=== PATIENT | female | born 1975 | race Caucasian/White ===

== ENCOUNTER 2019-04-03 08:47 | Day surgery (SDC) | payer OTHER ==
[2019-04-03] MEDS ORDERED: Ringers Lactate 1,000 ML IV ONE (09:00)
[2019-04-03] MEDS ORDERED: CEFAZOLIN/SWI 2gm 2 GM/20 ML SYR ONE (09:00)
[2019-04-03] MEDS ORDERED: LIDOCAINE 1% W/EPI 1:100,000 MDV 20 ML VIAL ONE (09:28)
[2019-04-03] MEDS ORDERED: NA CHLORIDE 0.9% 1,000 ML ONE (09:28)
[2019-04-03 09:29] LABS: Specific Gravity 1.025 (1.005-1.030)
[2019-04-03] MEDS ORDERED: MIDAZOLAM HCL 2 MG/2 ML INJ ONE (09:49)
[2019-04-03] MEDS ORDERED: FENTANYL CITR 100 MCG/2 ML ONE (09:49)
[2019-04-03] MEDS ORDERED: dexAMETHasone 10 MG/ML VIAL ONE (09:49)
[2019-04-03] MEDS ORDERED: PROPOFOL 200 MG/20 ML VIAL IV ONE (09:49)
[2019-04-03] MEDS ORDERED: LIDOCAINE 2% MPF 5 ML VIAL ONE (09:50)
[2019-04-03] MEDS: MORPHINE 4 MG/ML SYR ONE ×2 (12:57→13:02)
[2019-04-03] MEDS: MEPERIDINE HCL 25 MG/0.5 ML ONE ×2 (13:05→13:10)
[2019-04-03] MEDS ORDERED: TRAMADOL HCL 50 MG TAB ONE (13:39)
[2019-04-03] MEDS ORDERED: ONDANSETRON 4 MG/2 ML VIAL ONE (13:39)
[2019-04-03 13:58] VITALS: TEMP 97.3
[2019-04-03 14:38] VITALS: BP 136/67; O2SAT 97
--- NOTE | 2019-04-03 22:53 | OP ---
Date of Procedure: 04/03/2019 Surgeon: Hoa Acosta MD Preoperative Diagnoses: Menorrhagia, patient on anticoagulant for atrial fibrillation and dysmenorrh ea. Patient is status post LEEP and a tubal ligation. Cervical stenosis and section. Postoperative Diagnoses: Menorrhagia, patient on anticoagulant for atrial fibrillation and dysmenorr hea. Patient is status post LEEP and a tubal ligation. Cervical stenosis and section. Procedures Performed: Cervical dilatation, hysteroscopy, endometrial ablation with NovaSure. Anesthesia: General with LMA. Specimens: None. Complications: None. Drains: No drains. Condition: Stable. Findings: Uterine cavity anteflexed sounding length 11 cm under direct hysteroscopy with the camera and cervical length 5 cm, also done directly. Calculated cavity length was 6, measured width was 4.2 . Power setting was at 139 manzo and time of ablation 55 seconds. There was an excellent ablation effect. After the ablation was done cavity was visualized with the s cope and cavity irrigated out. Indications For Procedure: Patient is a 43-year-old who presented for all this. Transvaginal ultras ound was performed. Her endometrium was thickened and it was sampled with hysteroscopic guidance in the office and there was no atypia or malignancy. So discussed all the options. She had a Mirena at tempted by a prior provider who could not pass through her cervix. She has history of the LEEP and t he cervix was very high and uterus severely anteflexed. During hysteroscopy all these findings were confirmed and the left half of the cervix was barely present on the ectocervical part, so discussed a bout the options of depot medroxyprogesterone or endometrial ablation and she consented for endometri al ablation. Description Of Procedure: Patient was brought into the OR, 2 g of Ancef given and patient was taken back to OR, placed in a supine fashion on the operating table. General anesthesia given and placed i n a dorsal lithotomy position. Pelvic exam performed, uterus anteflexed, cervix very high, most like ly from her scar. Smithmill speculum was placed to expose the cervix, prep x3 with Betadine w as done. A tenaculum was used to hold the right half of the ectocervix that was more obvious, allison hanna, this did not work. Allis clamps had to be used and then once the cervix was held, the hysteroscop e was passed through the cervical canal into the uterine cavity under direct vision. The cavity was visualized and measured as dictated above. After the scope was removed and the measured lines were f ound, then the NovaSure device was taken, cervix had to be dilated to 16-Venezuelan, then an attempt with the NovaSure was done to insert it, but this was very difficult as this was a straight device for cu rved cervix which was leading into an anteflexed uterine cavity, so plan was to remove the speculum, change the tenaculum to Allis clamps only dilated to 18-Venezuelan, then the ablation device was inserted . Once the device was inserted and opened up, we opened up to 4.2 cm width, then the ablation cycle was done in the usual fashion with checking cavity integrity occluding the external os. Then once th is passed the ablation cycle was started and completed in 55 seconds. No interruption, did well, the device was undeployed and handed out. Diagnostic hysteroscope was taken again and hysteroscopy was performed rinsing out the cavity. There was an excellent endometrial ablation effect in the entire u terine cavity from both 1 corner to the other and both anterior posterior garzon all the way to the le dhruv of the internal os. So, all the instruments were removed. Instrument, needle, and sponge counts were done and were correct at the end of the case. Patient tolerated the procedure well. She will follow up with me in 4 weeks. Restarting her Xarelto tomorrow night. RYANN/RADU Voice ID: [id number] Report ID: [id number]
== END 2019-04-03 14:42 | disposition home or self-care (01) ==
LOC: OR 08:47
PROVIDERS: ATTEND Obstetrics & Gynecology
PROC: 0U5B8ZZ Destruction of Endometrium, Via Natural or Artificial Opening Endoscopic (ICD-10-PCS; principal; 2019-04-03 10:30)
DX: N92.1 Excessive and frequent menstruation with irregular cycle (principal); N94.6 Dysmenorrhea, unspecified; N88.2 Stricture and stenosis of cervix uteri; I48.91 Unspecified atrial fibrillation; F41.9 Anxiety disorder, unspecified; Z79.01 Long term (current) use of anticoagulants; Z98.51 Tubal ligation status; Z82.49 Family history of ischemic heart disease and other diseases of the circulatory system
CPT/HCPCS: 81025; 58563; J2704; J2250; J3010; J1100; J2175; J0690; J7120; J7030; J2405

== ENCOUNTER 2019-04-30 06:56 | Day surgery (SDC) | payer OTHER ==
--- NOTE | 2019-04-29 13:08 | RAD REPORT ---
EXAM DESCRIPTION: Angelica Jarvis (2 Views)04/29/2019 1:02 pm CLINICAL HISTORY: Preop for cardioversion COMPARISON: 2014 FINDINGS: The lungs appear clear of acute infiltrate. The heart is moderately enlarged IMPRESSION: No acute abnormalities displayed
[2019-04-29 14:24] LABS: Protime INR 1.76
[2019-04-29 14:34] LABS: Absolute Lymphocytes (CBC) 1.4 K/uL (0.7-4.9); Basophils % 0.4 % (0-1.3); Hematocrit 39.3 % (36.0-45.0); Lymphocytes % 13.8 % (15.3-44.8); MPV 12.1 fL (7.6-11.3); Potassium 3.9 mmol/L (3.5-5.1); RBC Red Blood Cell Count 4.28 M/uL (3.86-4.86)
[2019-04-30] MEDS ORDERED: ATROPINE SULF 1 MG/10 ML SYR IV ONE (07:31)
[2019-04-30] MEDS ORDERED: MIDAZOLAM HCL 5 MG/5 ML INJ ONE (07:31)
[2019-04-30] MEDS ORDERED: NA CHLORIDE 0.9% 500 ML ONE (07:31)
[2019-04-30] MEDS ORDERED: FLUMAZENIL 0.1 MG/ML (5 mL VIAL) IV ONE (07:31)
[2019-04-30 09:10] VITALS: TEMP 98.3
[2019-04-30 10:05] VITALS: O2SAT 97
[2019-04-30 10:16] VITALS: BP 127/80
--- NOTE | 2019-04-30 12:48 | EKG ---
Test Date: 2019-04-30 Test Time: 09:00:49 Receiving Dock Checker: NICOLAS MEASUREMENT RESULTS: Intervals: Rate: 81 ID: [id number] QRSD: 122 QT: 414 QTc: 480 [place]: P: ID: [id number] QRS: 242 T: -30 INTERPRETIVE STATEMENTS: Sinus rhythm with 1st degree AV block Right bundle branch block non specific T abnormality Abnormal ECG Compared to ECG 12/22/2014 07:27:33 Sinus arrhythmia no longer present Left anterior fascicular block no longer present Bifascicular block no longer present Electronically Signed On 04-30-19 12:47:43 SECURITY ASSOCIATE by Eloy Torres
--- NOTE | 2019-04-30 19:07 | OP ---
Surgeon: Eloy Torres MD Procedure: Direct current cardioversion. Indication: Atrial flutter. Procedure In Detail: The patient was brought to the cardiac laborer yard in a fasting state. She receiv ed Xarelto last night on schedule. She has been on Xarelto for years. She also took her usual dose of propafenone 300 mg 3 times a day earlier this morning. Otherwise, she was n.p.o. She was sedated with 10 mg of Versed. Anterior and posterior paddles were applied to her chest. A single shock of 50 joules was delivered through the anterior and posterior paddles, synchronized to the QRS complex. This resulted in normal sinus rhythm. Complications: From the procedure none. KRISH/RADU Voice ID: [id number] Report ID: [id number]
== END 2019-04-30 09:46 | disposition home health service (06) ==
LOC: CCL 06:56
PROVIDERS: ATTEND Internal Medicine
DX: I48.92 Unspecified atrial flutter (principal); Z79.01 Long term (current) use of anticoagulants
CPT/HCPCS: 93005; 85025; 80048; 36415; 85610; 82947; 85730; 71046; 92960; J2250; J7040

== ENCOUNTER 2020-12-07 06:09 | Day surgery (SDC) | payer SELFPAY ==
[2020-12-07 06:58] LABS: Absolute Lymphocytes (CBC) 2.3 K/uL (0.7-4.9); Basophils % 0.7 % (0-1.3); Hematocrit 41.6 % (36.0-45.0); Lymphocytes % 28.3 % (15.3-44.8); MPV 11.3 fL (7.6-11.3)
[2020-12-07 07:13] VITALS: TEMP 96.9
[2020-12-07 07:31] LABS: Protime INR 2.65
[2020-12-07 07:35] LABS: Potassium 4.1 mmol/L (3.5-5.1)
[2020-12-07] MEDS ORDERED: MIDAZOLAM HCL 2 MG/2 ML INJ ONE (07:49)
[2020-12-07] MEDS ORDERED: FLUMAZENIL 0.1 MG/ML (5 mL VIAL) IV ONE (07:50)
[2020-12-07] MEDS ORDERED: ATROPINE SULF 1 MG/10 ML SYR IV ONE (07:51)
[2020-12-07] MEDS ORDERED: MIDAZOLAM HCL 5 ML ONE (07:51)
[2020-12-07 09:09] VITALS: O2SAT 100
[2020-12-07 09:13] VITALS: BP 104/65
--- NOTE | 2020-12-07 10:21 | OP ---
Surgeon: Dimas Hatch MD Inspector [employer]: Lupe Funez. Indication: Recurrent atrial fibrillation, on flecainide. The plan was for direct current cardiover kamala. Procedure In Detail: The patient was given 10 mg of Versed IV push for total sedation. Two hundred joules, one shock was given to convert to sinus rhythm. The patient tolerated the procedure well. T here were no complications. No blood loss. Postoperative Diagnoses: Atrial fibrillation, status post successful cardioversion to sinus rhythm. We will continue her home medications including flecainide and Xarelto. She will go home when she wa kes up. She will see us in the office in the next week or 2. MIRIAN/RADU Voice ID: [id number] Report ID: [id number]
--- NOTE | 2020-12-07 10:26 | EKG ---
Test Date: 2020-12-07 Test Time: 07:08:33 Applied Psychology Professor: PORSCHE MEASUREMENT RESULTS: Intervals: Rate: 64 IA: 276 QRSD: 132 QT: 486 QTc: 501 [place]: P: -54 IA: 276 QRS: -83 T: -28 INTERPRETIVE STATEMENTS: Unusual P axis, possible ectopic atrial rhythm Right bundle branch block Left anterior fascicular block Bifascicular block Possible Lateral infarct, age undetermined Abnormal ECG Compared to ECG 04/30/2019 09:00:49 Left anterior fascicular block now present Bifascicular block now present Myocardial infarct finding now present Sinus rhythm no longer present First degree AV block no longer present T-wave abnormality no longer present Electronically Signed On 12-08-20 07:36:09 CDT by Dimas Hatch
== END 2020-12-07 09:30 | disposition home or self-care (01) ==
LOC: CCL 06:09
PROC: 5A2204Z Restoration of Cardiac Rhythm, Single (ICD-10-PCS; principal; 2020-12-07)
DX: I48.91 Unspecified atrial fibrillation (principal); Q21.1 Atrial septal defect; Q21.0 Ventricular septal defect; Z79.01 Long term (current) use of anticoagulants; F17.210 Nicotine dependence, cigarettes, uncomplicated; Z20.822 Contact with and (suspected) exposure to COVID-19
CPT/HCPCS: 36415; 80048; 85025; 85610; 85730; 92960; 93005; J2250; U0003

== ENCOUNTER 2022-04-15 08:22 | Emergency (ER) | payer BC, SELFPAY ==
--- OUTSIDE RECORDS SUMMARY | 2022-04-15 08:24 | XMS REPORT | Continuity of Care Document ---
:1975 Author Organization [facility] t Address [address] [place] [address] Care Team Providers Name Role Phone Zach Wilson Attending Clinician Unavailable Zach Wilson Admitting Clinician Unavailable Payers Payer Name Policy Type Policy Number Effective Date Expiration Date S ource Problems Condition Condition Condition Status Onset Resolution Last Treating Co mments Source Name Details Category Date Date Treatment Clinician Date Mild Mild Diagnosis Active Common reactive reactive [facility] airways airways - [facility] disease, disease, St unspecifie unspecifie Elizabeth kes d whether d whether Medi mayra persistent persistent Ce nter Cough Cough Diagnosis Active Common [facility] Allergies, Adverse Reactions, Alerts Allergy Allergy Status Severity Reaction(s) Onset Inactive Treating Comm ents Source Name Type Date Date Clinician No Known DA Active [facility] Allergie 5-20 Clear s 00:00: Vanegas 00 [facility] Medications Ordered Filled Start Stop Current Ordering Indication Dosage Frequency Signature Comments Components Source Medication Medication Date Date Medication? Clinician (SIG) Name Name Medrol Medrol 2018-06 2019- No Nieves as Common 07-02-13 Cannon directed [facility] 00:00: 00:00 - [facility] 00 :00 [facility] Propafenone Propafenone Yes Nieves 1 tablet Common HCl HCl [facility] Xarelto Xarelto Yes Nieves 1 tablet Com mon Cannon with food [facility] Procedures Procedure Date / Time Performed Performing Clinician Elidia monteiro [id number] 2021-11-15 00:00:00 CUEJO.01 [facility] [id number] 2021-11-15 00:00:00 CUEJO.01 [facility] [id number] 2021-11-15 00:00:00 CUEJO.01 [facility] Encounters Start End Encounter Admission Attending Care Care Encounter Source Date/Time Date/Time Type Type Clinicians Facility Department ID 2021-11-15 Inpatient EL Peter [facility] MEDI.01 [id number] [facility] 06:48:00 Zach Vanessa [id number] [facility] 2021-11-16 2021-11-17 Inpatient EL Peter [facility] MEDI.01 [id number] [facility] 17:00:00 14:46:00 Zach Vanessa 19 [facility] 2021-11-16 2021-11-17 Inpatient EL [facility] MEDI.01 [id number] [facility] 17:00:00 14:46:00 Zach Vanessa [id number] [facility] 2019-05-05 2019-05-05 [id number] Common 08:37:00 08:37:00 [facility] 2019-05-02 2019-05-02 [facility] [id number] Common 13:40:00 13:40:00 t [facility] [address] [facility] Results Test Description Test Time Test Comments Results Result Comments Source - XR T-SPINE 3V 2021-11-17 00:00:00 [facility] JUANAName: JUNE OLSENI : 1975 Sex: F FAX: Zach Hankins [phone] [place]: St: ADM Name: JESSICA OLSEN [facility] Jolon : 1975 Age/S: 45/F [address] [place] [address] Unit #: [id number] Loc: [address] [place] [address] Phys: Zach Wilson MD Acct: [id number] Dis Date: Status: ADM IN PHONE #: [phone] Exam Date: 11/17/2021 1218 FAX #: [phone] Reason: INTENSE BACK PAIN EXAMS: CPT CODE: [id number] XR T-SPINE 3V 00514 PROCEDURE INFORMATION: Exam: XR Thoracic Spine Exam date and time: 11/17/2021 11:40 AM Age: 45 years old Clinical indication: Pain in thoracic spine; Additional info: Intense back pain TECHNIQUE: Imaging protocol: XR of the thoracic spine. Views: 3 views. COMPARISON: DX XR CHEST 2 V 11/11/2021 2:15 PM FINDINGS: The disc space heights are normal. There are no acute abnormalities of alignment. There is no radiographic evidence of acute fracture. There are no gross lytic or blastic lesions in the bones. There is no bony narrowing of the spinal canal. IMPRESSION: 1. There is no radiographic evidence of acute disease. 2. If there is continued clinical concern, then cross-sectional imaging correlation may be of value because they are more accurate modalities. at 4602 Reported and signed by: Jona Sparks M.D. CC: Zach Vanessa MD Technologist: RT Rashaad(R) Trnscrd Date/Time/By: 11/17/2021 (9702) : By: [email or web address] Orig Print D/T: S: 11/17/2021 (6870) PAGE 1 Signed Report ACT-ISTAT 2021-11-15 09:28:00 Test Item Value Reference Range Interpretation Comme nts ACT-ISTAT (test code = ACTI) 318 SEC 74-137 H Performed by certified impact hammer operator at [facility] [id number] 08:48:00 Test Item Value Reference Range Interpretation Comments ACT-ISTAT (test code 347 SEC 74-137 H Perform ed by certified = ACTI) impact hammer operator at [facility] [id number] 08:31:00 Test Item Value Reference Range Interpretation Comments ACT-ISTAT (test code 335 SEC 74-137 H Perform ed by certified = ACTI) impact hammer operator at [facility] POC ARTERIAL BLOOD [id number] 08:17:00 Test Item Value Reference Range Interpretation Comments POC ARTERIAL BLOOD GAS PH (test 7.385 7.35-7.45 N code = POCPHA) POC ARTERIAL BLOOD GAS PCO2 (test 35.2 mmHg 35.0-45 N code = UPJIPH7F) POC TCO2 ARTERIAL (test code = 22.1 POCTCO2) POC ARTERIAL BLOOD GAS PO2 (test 147.2 mmHg 80-100.0 H code = ZRYVD1O) POC HCO3 ARTERIAL (test code = 21.0 MMOL/L 22.0-26.0 L [id number]) POC BASE EXCESS (test code = -3.4 MMOL/L -4.0-4.0 N POCBEA) POC O2 SATURATION (test code = 99.3 % 90-100 N POCO2S) BASIC METABOLIC [id number] 08:17:00 Test Item Value Reference Range Interpretation Comments SODIUM (test code = NA/ABG) 143 MEQ/L 134-147 N POTASSIUM (test code = K/ABG) 3.8 MEQ/L 3.4-5.0 N CHLORIDE (test code = CL/ABG) 110 MEQ/L 100-108 H CREATININE ABG (test code = 0.5 mg/dL 0.6-1.0 L CREAABG) POC IONIZED CALCIUM (test code = 1.14 MMOL/L 1.12-1.32 N POCCA) POC GLUCOSE (test code = POCGLU) 105 MG/DL HEMOGLOBIN [id number] 08:17:00 Test Item Value Reference Range Interpretation Comments HEMOGLOBIN ABG (test code = 13.7 G/DL 11.0-15.0 N HGB/ABG) [id number] 08:17:00 Test Item Value Reference Range Interpretation Comments HEMATOCRIT (test code = HCT/ABG) 40 % 33.0-45.0 N POC LACTIC [id number] 08:17:00 Test Item Value Reference Range Interpretation Comments POC LACTIC ACID (test code = 0.9 mmol/l 0.9-1.7 N POCLAC) HCG SERUM [id number] 07:50:00 Test Item Value Reference Range Interpretation Comments HCG SERUM QUAL (test code = SERUM NEGATIVE NEGATIVE HCGQL) Novel Coronavirus 2019 [id number] 23:44:00 Test Item Value Reference Range Interpretation Comments Novel Coronavirus Negative Negative Positive r esults are 2019 Inhouse (test indicativ e of the presence code = COVNONPUI) ofSARS-CoV -2 RNA, clinical correlation wit h patient historyand othe r diagnostic info rmation is necessary to determinepatien t infection status. Positiv e results do not rule out bacterial infection or co -infection with other viru ses. Negative result s do not preclude SARS-C oV-2 infection andsh ould not be used as the letha e basis for patient managementdecis ions. Negative result s must be combined with otherclinical observations, p atient history, and epidemiological information . Detection of SARS-CoV-2 RNA may be affe cted bysample collec tion methods, storag e conditions, and /or stageof infection. Hilaria l RNA mutations, vacc inations, antiviraltherap eutics, antibiotics, chemotherapeuti c orimmunosuppres daniel drugs have not been e valuated for effectson d etection. Results are for the identification of SARS-CoV-2 RNA usingreal-time (RT) polymerase carlos enrique n reaction (PCR) technolog yfor the qualitative det ection of nucleic acids f rom [id number] v irus and diagnosis of SA RS-CoV-2 virusinfection. It is an Emergency Use Authorization ( EUA) testauthorized by the U.S. FDA. PROTHROMBIN [id number] 14:40:00 Test Item Value Reference Range Interpretation Comments PROTHROMBIN TIME 21.8 SECONDS 9.3-12.9 H PATIENT (test code = PTP) INTERNATIONAL NORMAL 2.0 0.8-1.2 H TARGET INR BY RATIO (test code = INDICATIO N Indication INR) INR1. Prophylax is of venous thrombos is 2.0 - 3.0 (orthoped ic surgery), Proph ylaxis of venous throm bosis (other than hig h-risk surgery), Treat ment of Deep Vein Thrombosis/Pulm onary Embolism, Preve ntion of systemic emb olism - Tissue heart va lves, Acute Myocardia l Infarction (to prevent systemic emboli sm), Valvular heart disease, Atrial Fibrillation, Bileaflet mecha nical valve in aortic position.2. Mec hanical prosthetic valv es (high risk), 2 .5 - 3.5 Presence of Lupus Anticoagulant o r Antiphospholipi d Antibodies, Pre vention of systemic emb olism - Acute Myocardia l Infarction (to prevent recurrent infar ct). BASIC METABOLIC [id number] 14:34:00 Test Item Value Reference Range Interpretation Comments SODIUM (test code = NA) 143 mEq/L 134-147 N POTASSIUM (test code = 4.1 mEq/L 3.4-5.0 N K) CHLORIDE (test code = 109 mEq/L 100-108 H CL) CARBON DIOXIDE (test 27 mEq/l 21-33 N code = CO2) ANION GAP (test code = 11 0-20 N GAP) GLUCOSE (test code = 96 mg/dL 70-110 N GLU) BLOOD UREA NITROGEN 13 mg/dL 7-18 N (test code = BUN) GLOMERULAR FILTRATION 78.3 95-105 L Units of measure = RATE (test code = GFR) ml/mi n/1.73 m2 CREATININE (test code = 0.8 mg/dL 0.6-1.3 N CREAT) CALCIUM (test code = 9.7 mg/dL 8.0-10.5 N CA) CBC W/AUTO [id number] 14:21:00 Test Item Value Reference Range Interpretation Comments WHITE BLOOD CELL (test code = 7.2 x10 3/uL 4.5-11.0 N WBC) RED BLOOD CELL (test code = 5.16 x10 6/uL 3.54-5.02 H RBC) HEMOGLOBIN (test code = HGB) 16.1 g/dL 11.0-15.0 H HEMATOCRIT (test code = HCT) 49.3 % 33.0-45.0 H MEAN CELL VOLUME (test code = 95.5 fL 81.0-99.0 N MCV) MEAN CELL HGB (test code = MCH) 31.2 pg 27.0-33.0 N MEAN CELL HGB CONCETRATION 32.7 g/dL 33.0-37.0 L (test code = MCHC) RED CELL DISTRIBUTION WIDTH CV 12.5 % 11.5-14.5 N (test code = RDW) RED CELL DISTRIBUTION WIDTH SD 44.0 fL 37.0-54.0 N (test code = RDW-SD) PLATELET COUNT (test code = 192 x10 3/uL 150-400 N PLT) IMMATURE PLATELET FRACTION 12.8 % 0.9-11.2 H (test code = IPF) MEAN PLATELET VOLUME (test code 13.0 fL 7.0-9.0 H = MPV) NEUTROPHIL % (test code = NT%) 62.2 % 56.0-77.0 N IMMATURE GRANULOCYTE % (test 0.1 % 0.0-2.0 N code = IG%) LYMPHOCYTE % (test code = LY%) 26.3 % 14.0-32.0 N MONOCYTE % (test code = MO%) 8.5 % 4.8-9.0 N EOSINOPHIL % (test code = EO%) 2.2 % 0.3-3.7 N BASOPHIL % (test code = BA%) 0.7 % 0.0-2.0 N NUCLEATED RBC % (test code = 0.0 % 0-0 N NRBC%) NEUTROPHIL # (test code = NT#) 4.46 x10 3/uL 2.0-7.6 N IMMATURE GRANULOCYTE # (test 0.01 x10 3/uL 0.00-0.03 N code = IG#) LYMPHOCYTE # (test code = LY#) 1.89 x10 3/uL 1.0-3.8 N MONOCYTE # (test code = MO#) 0.61 x10 3/uL 0.1-0.8 N EOSINOPHIL # (test code = EO#) 0.16 x10 3/uL 0.0-0.2 N BASOPHIL # (test code = BA#) 0.05 x10 3/uL 0.0-0.2 N NUCLEATED RBC # (test code = 0.00 x10 3/uL 0.0-0.1 N NRBC#) MANUAL DIFF REQUIRED (test code NO = TAI) - XR CHEST 2 [id number] 00:00:00 [facility] 1975 Sex: F FAX: Zach Hankins [phone] [place]: St: PRE Name: JESSICA OLSEN [facility] : 1975 Age/S: 45/F [address] [place] [address] Unit #: [id number] Loc: [place] [address] Phys: Zach Wilson MD Acct: [id number] Dis Date: Status: [place] [facility] #: [phone] Exam Date: 11/11/2021 1415 FAX #: Reason: PREOP EXAMS: CPT CODE: [id number] XR CHEST 2 V [id number] PROCEDURE INFORMATION: Exam: XR Chest Exam date and time: 11/11/2021 2:15 PM Age: 45 years old Clinical indication: Pre-operative exam; Respiratory screening exam; Additional info: Preop TECHNIQUE: Imaging protocol: XR of the chest.Views: 2 views. PA and Lateral COMPARISON: No relevant prior studies available. FINDINGS: Lungs: No consolidation. Pleural spaces: No pleural effusion. Heart/Mediastinum: Cardiomegaly with minimal central venous congestion. Bones/joints: No gross acute findings. IMPRESSION: Cardiomegaly with minimal central venous congestion. at 1524 Reported and signed by: Emil Patino D.O. CC: Zach Vanessa MD Technologist: RT Asher(Shauna) Trnscrd Date/Time/By: 11/11/2021 (7504) : By: [email or web address] Orig Print D/T: S: 11/11/2021 (4637) PAGE 1 Signed Report
[2022-04-15] MEDS ORDERED: METOPROLOL TAR 25 MG TAB ONE (08:41)
[2022-04-15 08:59] LABS: Absolute Lymphocytes (CBC) 1.9 K/uL (0.7-4.9); Hematocrit 47.5 % (36.0-45.0); Lymphocytes % 28.7 % (15.3-44.8); MCV 93.6 fL (80-100); MPV 10.9 fL (7.6-11.3); RBC Red Blood Cell Count 5.08 M/uL (3.86-4.86)
[2022-04-15 09:12] LABS: Potassium 3.4 mmol/L (3.5-5.1); Troponin High Sensitivity 8.3 pg/mL (<58.9)
[2022-04-15 09:17] LABS: Protime INR 2.71
--- NOTE | 2022-04-15 09:50 | RAD REPORT ---
EXAM DESCRIPTION: Angelica Single View04/15/2022 9:41 am CLINICAL HISTORY: Palpitations COMPARISON: 2014 FINDINGS: The lungs appear clear of acute infiltrate. The heart is mildly to moderately enlarged IMPRESSION: No acute abnormalities displayed
--- NOTE | 2022-04-15 10:49 | ER ---
Nurse's Notes [facility] Name: Aria Pitts Age: 46 yrs Sex: Female : 1975 Arrival Date: 04/15/2022 Time: 08:24 Bed 4 Private MD: Alfredo Bright Diagnosis: Unspecified atrial flutter;Palpitations Presentation: 04/15 08:36 Chief complaint: Patient states: pt was at work and she felt like she was going to pass iw out, she looked at her watch and her HR was 210, she has hx of afib/aflutter, recent heart ablation in October with Dr. Bright , feels like her HR has slowed down now. Coronavirus screen: At this time, the client does not indicate any symptoms associated with coronavirus-19. Ebola Screen: Patient negative for fever greater than or equal to 101.5 degrees Fahrenheit, and additional compatible Ebola Virus Disease symptoms Patient denies exposure to infectious person. Patient denies travel to an Ebola-affected area in the 21 days before illness onset. No symptoms or risks identified at this time. Initial Sepsis Screen: Does the patient meet any 2 criteria? No. Patient's initial sepsis screen is negative. Does the patient have a suspected source of infection? No. Patient's initial sepsis screen is negative. Risk Assessment: Do you want to hurt yourself or someone else? Patient reports no desire to harm self or others. Onset of symptoms was April 15, 2022. 08:36 Method Of Arrival: Wheelchair iw 08:36 Acuity: FREYA 2 iw - Immunization history:: Adult Immunizations unknown. - Family history:: not pertinent. - Social history:: Smoking status: unknown. - Hospitalizations: : No recent hospitalization is reported. Screenin:48 Abuse screen: Denies threats or abuse. Nutritional screening: No deficits noted. jd3 Tuberculosis screening: No symptoms or risk factors identified. Fall Risk Ambulatory Aid- None/Bed Rest/Nurse Assist (0 pts). Gait- Normal/Bed Rest/Wheelchair (0 pts) Mental Status- Oriented to own ability (0 pts). Total Cain Fall Scale indicates No Risk (0-24 pts). Assessment: 08:44 General: Appears in no apparent distress. comfortable, Behavior is calm, cooperative, jd3 appropriate for age. Pain: Complains of pain in chest Pain does not radiate. Pain currently is 0 out of 10 on a pain scale. Quality of pain is described as pressure, Pain began 1 day ago. Is continuous, Aggravated by increased activity. Neuro: Sykes Agitation-Sedation Scale (RASS): 0 - Alert and Calm Level of Consciousness is awake, alert, obeys commands, Oriented to person, place, time, situation. Cardiovascular: Heart tones S1 S2 present Capillary refill < 3 seconds Patient's skin is warm and dry. Pulses are 2+ in right radial artery and left radial artery Rhythm is sinus tachycardia. Respiratory: Airway is patent Respiratory effort is even, unlabored, Respiratory pattern is regular, symmetrical, Breath sounds are clear bilaterally. Denies cough. GI: Abdomen is non-distended, Abd is soft and non tender X 4 quads. Reports nausea, Patient currently denies abdominal pain. : No signs and/or symptoms were reported regarding the genitourinary system. EENT: No signs and/or symptoms were reported regarding the EENT system. Derm: Skin is intact, Skin is dry, Skin is normal, Skin temperature is warm. Musculoskeletal: Circulation, motion, and sensation intact. Range of motion: intact in all extremities. 09:43 Reassessment: Patient appears in no apparent distress at this time. No changes from [facility] previously documented assessment. Patient and/or family updated on plan of care and expected duration. Pain level reassessed. Patient is alert, oriented x 3, equal unlabored respirations, skin warm/dry/pink. 10:47 Reassessment: Patient appears in no apparent distress at this time. Patient and/or [facility] family updated on plan of care and expected duration. Pain level reassessed. Patient is alert, oriented x 3, equal unlabored respirations, skin warm/dry/pink. provider at bedside discussing plan of care. Vital Signs: 08:49 BP 144 / 79; Pulse 107; Resp 15 S; Temp 97.4(A); Pulse Ox 97% on R/A; Weight 63.5 kg jd3 (R); Height 5 ft. 0 in. (152.40 cm) (R); Pain 0/10; 09:35 BP 113 / 93; Pulse 89; rn 09:44 BP 113 / 93; Pulse 87; Resp 16; Pulse Ox 99% on R/A; Pain 0/10; jd3 10:47 BP 137 / 78; Pulse 78; Resp 16; Pulse Ox 99% on R/A; jd3 08:49 Body Mass Index 27.34 (63.50 kg, 152.40 cm) jd3 ED Course: 08:24 Patient arrived in ED. as 08:24 Alfredo Bright MD is Private Physician. as 08:24 Demian Gray MD is Attending Physician. rn 08:30 Inserted saline lock: 22 gauge in right antecubital area, using aseptic technique. jd3 Blood collected. placed by HIEU RN. Patient maintains SpO2 saturation greater than 95% on room air. 08:38 Triage completed. iw 08:38 Arm band placed on. iw 08:39 Surinder Delacruz RN is Primary Nurse. jd3 08:47 Patient has correct armband on for positive identification. Placed in gown. Bed in low jd3 position. Call light in reach. Side rails up X 1. Adult w/ patient. Client placed on continuous cardiac and pulse oximetry monitoring. NIBP monitoring applied. alarm security or surveillance monitor on. Pulse ox on. NIBP on. Warm blanket given. 09:42 XRAY Chest (1 view) In Process Unspecified. EDMS 10:47 Alfredo Bright MD is Referral Physician. rn 11:02 No provider procedures requiring assistance completed. IV discontinued, intact, jd3 bleeding controlled, No redness/swelling at site. Pressure dressing applied. Administered Medications: 08:44 Drug: Metoprolol 25 mg Route: PO; jd3 09:40 Follow up: Response: No adverse reaction jd3 Medication: 08:49 VIS not applicable for this client. jd3 Outcome: 10:48 Discharge ordered by . rn 11:02 Discharged to home ambulatory, with family. jd3 11:02 Condition: stable 11:02 Discharge instructions given to patient, family, Instructed on discharge instructions, follow up and referral plans. Demonstrated understanding of instructions, follow-up care. 11:03 Patient left the ED. jd3 Signatures: Dispatcher [employer] Jinny Bolden Irene RN ROSALINDA iw Demian Gray MD MD rn Davies, Jonathon, RN RN jmelvin Corrections: (The following items were deleted from the chart) 08:39 08:36 Chief complaint: Patient states: pt was at work and she felt like she was going iw to pass out, she looked at her watch and her HR was 210, she has hx of aflib/aflutter, recent heart ablation in October with Dr. Bright , feels like her HR has slowed down now iw
--- NOTE | 2022-04-15 10:49 | EDPHYS ---
Physician Documentation [facility] Name: Aria Pitts Age: 46 yrs Sex: Female : 1975 Arrival Date: 04/15/2022 Time: 08:24 Bed 4 Private MD: Alfredo Bright ED Physician Demian Gray HPI: 04/15 08:37 This 46 yrs old Female presents to ER via Unassigned with complaints of Irregular Pulse.rn 08:37 The patient presents with a history of irregular heart beat, heart racing. Context: The rn symptoms occur at rest. Onset: The symptoms/episode began/occurred last night. Duration: The patient or guardian reports multiple episodes, that are intermittent. Modifying factors: The symptoms are aggravated by light activity, The symptoms are alleviated by rest. Associated signs and symptoms: Pertinent positives: lightheadedness, Pertinent negatives: chest pain, fever, syncope. Severity of symptoms: At their worst the symptoms were moderate in the emergency department the symptoms have improved. The patient has experienced similar episodes in the past. The patient has been recently seen by a physician:. Pt reports hx of atrial fibrillation/flutter in past, had ablation in October of this year, and just this week switched from sotalol to metoprolol. Since last night, has been having intermittent episodes of fast heart rate and feeling lightheaded. Today was at work, lasted approx 5 minutes, now feels better. No fever/cough/sob/chest pain/vomiting/diarrhea. . - Immunization history:: Adult Immunizations unknown. - Family history:: not pertinent. - Social history:: Smoking status: unknown. - Hospitalizations: : No recent hospitalization is reported. ROS: 08:37 Constitutional: Negative for fever, chills, and weight loss, Eyes: Negative for injury, rn pain, redness, and discharge, Neck: Negative for injury, pain, and swelling, Cardiovascular: Negative for chest pain, and edema, Respiratory: Negative for shortness of breath, cough, wheezing, and pleuritic chest pain, Abdomen/GI: Negative for abdominal pain, nausea, vomiting, diarrhea, and constipation, MS/Extremity: Negative for injury and deformity, Skin: Negative for injury, rash, and discoloration, Neuro: Negative for headache, weakness, numbness, tingling, and seizure. Exam: 08:37 Constitutional: This is a well developed, well nourished patient who is awake, alert, rn and in no acute distress. Head/Face: Normocephalic, atraumatic. Cardiovascular: Tachycardic, regular Respiratory: No increased work of breathing, no retractions or nasal flaring. Abdomen/GI: Soft, non-tender Skin: Warm, dry MS/ Extremity: Pulses equal, no cyanosis. Neuro: Awake and alert, GCS 15 Vital Signs: 08:49 BP 144 / 79; Pulse 107; Resp 15 S; Temp 97.4(A); Pulse Ox 97% on R/A; Weight 63.5 kg jd3 (R); Height 5 ft. 0 in. (152.40 cm) (R); Pain 0/10; 09:35 BP 113 / 93; Pulse 89; rn 09:44 BP 113 / 93; Pulse 87; Resp 16; Pulse Ox 99% on R/A; Pain 0/10; jd3 10:47 BP 137 / 78; Pulse 78; Resp 16; Pulse Ox 99% on R/A; jd3 08:49 Body Mass Index 27.34 (63.50 kg, 152.40 cm) jd3 MDM: 08:24 Patient medically screened. rn 10:46 Differential diagnosis: arrythmia, dehydration, stress disorder. Data reviewed: vital rn signs, nurses notes, lab test result(s), EKG, radiologic studies, plain films, and as a result, I will discharge patient. Counseling: I had a detailed discussion with the patient and/or guardian regarding: the historical points, exam findings, and any diagnostic results supporting the discharge/admit diagnosis, lab results, radiology results, the need for outpatient follow up, to return to the emergency department if symptoms worsen or persist or if there are any questions or concerns that arise at home. Response to treatment: the patient's symptoms have markedly improved after treatment, and as a result, I will discharge patient. Special discussion: I discussed with the patient/guardian in detail that at this point there is no indication for admission to the hospital. It is understood, however, that if the symptoms persist or worsen the patient needs to return immediately for re-evaluation. Based on the history and exam findings, there is no indication for further emergent testing or inpatient evaluation. I discussed with the patient/guardian the need to see the user acceptance tester for further evaluation of the symptoms. ED course: Consulted with Dr. Bright, ok to dc home now that rate controlled and on xarelto, reports ok to increase metoprolol dose and to f/u outpatient. . 04/15 08:37 Order name: Basic Metabolic Panel; Complete Time: 09:20 rn 04/15 08:37 Order name: CBC with Diff; Complete Time: 09:20 rn 04/15 08:37 Order name: D-Dimer; Complete Time: 09:20 rn 04/15 08:37 Order name: NT PRO-BNP; Complete Time: 09:20 rn 04/15 08:37 Order name: PT-INR; Complete Time: 09:20 rn 04/15 08:37 Order name: Troponin HS; Complete Time: 09:20 rn 04/15 08:37 Order name: XRAY Chest (1 view); Complete Time: 09:56 rn 04/15 08:37 Order name: EKG; Complete Time: 08:41 rn 04/15 08:37 Order name: Cardiac monitoring; Complete Time: 08:39 rn 04/15 08:37 Order name: EKG - Nurse/Tech; Complete Time: 08:39 rn 04/15 08:37 Order name: IV Saline Lock; Complete Time: 08:39 rn 04/15 08:37 Order name: Labs collected and sent; Complete Time: 08:39 rn 04/15 08:37 Order name: O2 Per Protocol; Complete Time: 08:39 rn 04/15 08:37 Order name: O2 Sat Monitoring; Complete Time: 08:39 rn Administered Medications: 08:44 Drug: Metoprolol 25 mg Route: PO; jd3 09:40 Follow up: Response: No adverse reaction jd3 Disposition Summary: 04/15/22 10:48 Discharge Ordered Location: Home rn Problem: an acute exacerbation rn Symptoms: have improved rn Condition: Stable rn Diagnosis - Unspecified atrial flutter rn - Palpitations rn Followup: rn - With: Alfredo Bright MD - When: 2 - 3 days - Reason: Recheck today's complaints, Re-evaluation by your physician Discharge Instructions: - Discharge Summary Sheet rn - Palpitations rn - Atrial Flutter rn Forms: - Medication Reconciliation Form rn - Thank You Letter rn - Antibiotic consultant rn - Prescription Opioid Use rn Signatures: Dispatcher [employer] EDDemian Frausto, MD MD rn Surinder Delacruz RN RN jd3
[2022-04-15 11:27] VITALS: TEMP 97.4
[2022-04-15 11:29] VITALS: O2SAT 99
[2022-04-15 11:30] VITALS: BP 137/78
--- NOTE | 2022-04-15 16:53 | EKG ---
Test Date: 2022-04-15 Test Time: 08:30:53 Clinical Psychiatrist: AVERY MEASUREMENT RESULTS: Intervals: Rate: 102 OR: QRSD: 140 QT: 400 QTc: 521 [place]: P: OR: QRS: -66 T: -40 INTERPRETIVE STATEMENTS: Atrial flutter with variable AV block Right bundle branch block Left anterior fascicular block Bifascicular block Anterolateral infarct, age undetermined Abnormal ECG Compared to ECG 12/07/2020 07:08:33 No significant changes Electronically Signed On 04-15-22 16:52:01 CDT by Alfredo Bright
--- NOTE | 2022-04-17 18:43 | EKG ---
Test Date: 2022-04-15 Test Time: 09:37:46 Improvement Nurse: MEREDITH MEASUREMENT RESULTS: Intervals: Rate: 76 LA: QRSD: 138 QT: 402 QTc: 452 [place]: P: 84 LA: QRS: -65 T: -29 INTERPRETIVE STATEMENTS: Atrial flutter with variable AV block Right bundle branch block Left anterior fascicular block Bifascicular block Anterolateral infarct, age undetermined Abnormal ECG Compared to ECG 04/15/2022 08:30:53 No significant changes Electronically Signed On 04-17-22 18:39:18 CDT by Alfredo Bright
== END 2022-04-15 11:03 | disposition home or self-care (01) ==
LOC: ER 08:22
DX: I48.92 Unspecified atrial flutter (principal); R00.2 Palpitations
CPT/HCPCS: 36415; 71045; 80048; 83880; 84484; 85025; 85379; 85610; 93005; 99285

== ENCOUNTER 2023-04-30 11:10 | Inpatient (IN) | payer BC ==
--- OUTSIDE RECORDS SUMMARY | 2023-04-30 11:13 | XMS REPORT | Continuity of Care Document ---
:1975 Author Organization [facility] t Address [address] [place] [address] Care Team Providers Name Role Phone Zach Wilson Attending Clinician Unavailable [email or web address] Attending Clinician Unavailable Zach Wilson Admitting Clinician Unavailable [email or web address] Admitting Clinician Unavailable Payers Payer Name Policy Type Policy Number Effective Date Expiration Date S ource Problems Condition Condition Condition Status Onset Resolution Last Treating Co mments Source Name Details Category Date Date Treatment Clinician Date Cough Cough Diagnosis Active Common [facility] Mild Mild Diagnosis Active Common reactive reactive [facility] airways airways - [facility] disease, disease, St unspecifie unspecifie Elizabeth kes d whether d whether Medi mayra persistent persistent Ce nter Allergies, Adverse Reactions, Alerts Allergy Allergy Status Severity Reaction(s) Onset Inactive Treating Comm ents Source Name Type Date Date Clinician No Known DA Active U [facility] Allergie 5-20 Clear s 00:00: Vanegas 00 [facility] Medications Ordered Filled Start Stop Current Ordering Indication Dosage Frequency Signature Comments Components Source Medication Medication Date Date Medication? Clinician (SIG) Name Name Medrol Medrol 2018-06- No Nieves as Common 07-02 Cannon directed [facility] 00:00: 00:00 - [facility] 00 :00 [facility] Propafenone Propafenone Yes Nieves 1 tablet Common HCl HCl Cannon [facility] - [facility] Xarelto Xarelto Yes Nieves 1 tablet Com mon Cannon with food [facility] - [facility] Procedures Procedure Date / Time Performed Performing Clinician Elidia monteiro [id number] 2021-11-15 00:00:00 CUEJO.01 [facility] [id number] 2021-11-15 00:00:00 CUEJO.01 [facility] [id number] 2021-11-15 00:00:00 CUEJO.01 [facility] Encounters Start End Encounter Admission Attending Care Care Encounter Source Date/Time Date/Time Type Type Clinicians Facility Department ID 2021-11-15 Inpatient EL Peter [facility] MEDI.01 [id number] [facility] 06:48:00 Zach Vanessa [id number] [facility] 2023-04-20 2023-04-20 Outpatient GC_GCBZW_Ka PRIV PRIV [id number] [facility] 00:00:00 00:00:00 diyala_S [id number] Medic al 2021-11-16 2021-11-17 Inpatient EL Peter [facility] MEDI.01 [id number] [facility] 17:00:00 14:46:00 Zach Vanessa 19 [facility] 2021-11-16 2021-11-17 Inpatient EL [place] [facility] MEDI.01 [id number] [facility] 17:00:00 14:46:00 Zach Vanessa [id number] [facility] 2019-05-05 2019-05-05 [facility] [id number] Common 08:37:00 08:37:00 t Urgent Ur[facility] Care S [facility]irit Care [facility] 2019-05-02 2019-05-02 [facility] [id number] Common 13:40:00 13:40:00 t [facility] [address] [facility] Results Test Description Test Time Test Comments Results Result Comments Source - XR T-SPINE 3V 2021-11-17 00:00:00 [facility] : 1975 Sex: F FAX: Zach Hankins [phone] [place]: St: ADM Name: JESSICA OLSEN [facility] : 1975 Age/S: 45/F [address] [place] [address] Unit #: [id number] Loc: [address] [place] [address] Phys: Zach Wilson MD Acct: [id number] Dis Date: Status: ADM IN PHONE #: [phone] Exam Date: 11/17/2021 1218 FAX #: [phone] Reason: INTENSE BACK PAIN EXAMS: CPT CODE: [id number] XR T-SPINE 3V 12715 PROCEDURE INFORMATION: Exam: XR Thoracic Spine Exam [...] because they are more accurate modalities. at 1239 Reported and signed by: Jona Sparks M.D. CC: Zach Vanessa MD Technologist: RT Rashaad(Shauna) Trnscrd Date/Time/By: 11/17/2021 (5959) : By: [email or web address] Orig Print D/T: S: 11/17/2021 (6706) PAGE 1 Signed Report ACT-ISTAT 2021-11-15 09:28:00 Test Item Value Reference Range Interpretation Comme nts ACT-ISTAT (test code = ACTI) 318 SEC 74-137 H Performed by certified geophysical operator at [facility] [id number] 08:48:00 Test Item Value Reference Range Interpretation Comments ACT-ISTAT (test code 347 SEC 74-137 H Perform ed by certified = ACTI) geophysical operator at [facility] [id number] 08:31:00 Test Item Value Reference Range Interpretation Comments ACT-ISTAT (test code 335 SEC 74-137 H Perform ed by certified = ACTI) geophysical operator at [facility] POC ARTERIAL BLOOD [id number] 08:17:00 Test Item Value Reference Range Interpretation Comments POC ARTERIAL BLOOD GAS PH (test 7.385 7.35-7.45 N code = POCPHA) POC ARTERIAL BLOOD GAS PCO2 (test 35.2 mmHg 35.0-45 N code = [id number]) POC TCO2 ARTERIAL (test code = 22.1 POCTCO2) POC ARTERIAL BLOOD GAS PO2 (test 147.2 mmHg 80-100.0 H code = HKQQO5M) POC HCO3 ARTERIAL (test code = 21.0 MMOL/L 22.0-26.0 L [id number]) POC BASE EXCESS (test code = -3.4 MMOL/L -4.0-4.0 N POCBEA) POC O2 SATURATION (test code = 99.3 % 90-100 N POCO2S) BASIC METABOLIC [id number] 08:17:00 Test Item Value Reference Range Interpretation [...] (test code = POCGLU) 105 MG/DL HEMOGLOBIN [id number] 08:17:00 Test Item Value Reference Range Interpretation Comments HEMOGLOBIN ABG (test code = 13.7 G/DL 11.0-15.0 N HGB/ABG) [id number] 08:17:00 Test Item Value Reference Range Interpretation Comments HEMATOCRIT (test code = HCT/ABG) 40 % 33.0-45.0 N POC LACTIC [id number] 08:17:00 Test Item Value Reference Range Interpretation Comments POC LACTIC ACID (test code = 0.9 mmol/l 0.9-1.7 N POCLAC) HCG SERUM [id number] 07:50:00 Test Item Value Reference Range Interpretation Comments HCG SERUM QUAL (test code = SERUM NEGATIVE NEGATIVE HCGQL) Novel Coronavirus 2019 [id number] 23:44:00 Test Item Value Reference Range Interpretation [...] det ection of nucleic acids f rom [id number] v irus and diagnosis of SA RS-CoV-2 virusinfection. It is an Emergency Use Authorization ( EUA) testauthorized by the U.S. FDA. PROTHROMBIN [id number] 14:40:00 Test Item Value Reference Range Interpretation [...] Mec hanical prosthetic valv es (high risk), 2. 5 - 3.5 Presence of Lup us Anticoagulant o r Antiphospholipi d Antibodies, Pre vention of systemic emb olism - Acute Myocardia l Infarction (to prevent recurrent infar ct). BASIC METABOLIC [id number] 14:34:00 Test Item Value Reference Range Interpretation [...] 9.7 mg/dL 8.0-10.5 N CA) CBC W/AUTO [id number] 14:21:00 Test Item Value Reference Range Interpretation [...] MANUAL DIFF REQUIRED (test code NO = MDIFF) - XR CHEST 2 [id number] 00:00:00 [facility] 1975 Sex: F FAX: Zach Hankins [phone] [place]: ER[address]IN St: PRE Name: JUNE OLSENI [facility] : 1975 Age/S: 45/F [address] [place] [address] Unit #: [id number] Loc: [place] [address] Phys: Zach Wilson MD Acct: [id number] Dis Date: Status: PRE SDC PHONE #: [phone] Exam Date: 11/11/2021 1415 FAX #: [phone] Reason: PREOP EXAMS: CPT CODE: [id number] XR CHEST 2 V 63892 PROCEDURE INFORMATION: Exam: XRChest Exam date and time: 11/11/2021 2:15 PM Age: 45 years old Clinical indication: Pre-operative exam; Respiratory screening exam; Additional info: Preop TECHNIQUE: Imaging protocol: XR of the chest. Views: 2 views. PA and Lateral COMPARISON: No relevant prior studies available. FINDINGS: Lungs: No consolidation. Pleural spaces: No pleural effusion. Heart/Mediastinum: Cardiomegaly with minimal central venous congestion. Bones/joints: No gross acute findings. IMPRESSION: Cardiomegaly with minimal jeaneth tral venous congestion. at 1524 Reported and signed by: Emil Patino D.O. CC: Zach Vanessa MD Technologist: KM Khanna) Trnscrd Date/Time/By: 11/11/2021 (1521) : By: [email or web address] Orig Print D/T: S: 11/11/2021 (3188) PAGE 1 Signed Report
[2023-04-30 11:53] LABS: Absolute Lymphocytes (CBC) 2.3 K/uL (0.7-4.9); Hematocrit 45.6 % (36.0-45.0); MCV 91.3 fL (80-100); MPV 10.7 fL (7.6-11.3); Platelets 238 thou/uL (152-406)
[2023-04-30 11:54] LABS: Protime INR 2.32
[2023-04-30 12:07] LABS: Bilirubin Direct 0.2 mg/dL (0-0.2); Bilirubin Indirect, Calculated 0.6 mg/dL (0.2-0.8); Bilirubin Total 0.8 mg/dL (0.2-1.0); Potassium 3.9 mEq/L (3.5-5.1); Protein, Total 7.9 g/dL (6.4-8.2); Troponin High Sensitivity 6.5 pg/mL (<58.9)
--- NOTE | 2023-04-30 12:34 | RAD REPORT ---
EXAM DESCRIPTION: RAD - Chest Single View - 04/30/2023 12:19 pm CLINICAL HISTORY: PALPITATIONS Chest pain. COMPARISON: Chest Single View dated 04/15/2022; Chest Pa And Lat (2 Views) dated 04/29/2019; CHEST SI NGLE VIEW dated 10/14/2014; CHEST SINGLE VIEW dated 10/13/2014 FINDINGS: Portable technique limits examination quality. Mild interstitial pulmonary edema. The heart is mildly enlarged. No displaced fractures. IMPRESSION: Mild CHF is possible.
[2023-04-30] MEDS ORDERED: NA CHLORIDE 0.9% 1,000 ML ONE (12:43)
[2023-04-30] MEDS ORDERED: METOPROLOL TARTRATE 5 MG/5 ML INJ IV ONE (12:51)
--- NOTE | 2023-04-30 13:19 | ER ---
Nurse's Notes [facility] Name: Aria Pitts Age: 47 yrs Sex: Female : 1975 Arrival Date: 04/30/2023 Time: 11:10 Bed 20 Private MD: Diagnosis: Palpitations;Tachycardia, unspecified;Dizziness and giddiness;Unspecified atrial fibrillation Presentation: 04/30 11:22 Chief complaint: Patient states: Palpitations started night. HR 160-185 at ll1 times since. Feels dizzy and weak with palpitations. Coronavirus screen: Client denies travel out of the [place] in the last 14 days. At this time, the client does not indicate any symptoms associated with coronavirus-19. Ebola Screen: Patient denies travel to an Ebola-affected area in the 21 days before illness onset. Initial Sepsis Screen: Does the patient meet any 2 criteria? HR > 90 bpm. No. Patient's initial sepsis screen is negative. Does the patient have a suspected source of infection? No. Patient's initial sepsis screen is negative. Risk Assessment: Do you want to hurt yourself or someone else? Patient reports no desire to harm self or others. Onset of symptoms was April 26, 2023. 11:22 Method Of Arrival: Wheelchair ll1 11:22 Acuity: FREYA 2 ll1 Triage Assessment: 11:20 General: Appears in no apparent distress. comfortable, Behavior is calm, cooperative. rs5 Historical: - Allergies: 11:22 No Known Drug Allergies; ll1 - PMHx: 11:22 Atrial fibrillation; ll1 - PSHx: 11:22 A fib ablation; ll1 - Immunization history:: Adult Immunizations up to date. - Social history:: Smoking status: Patient denies any tobacco usage or history of. Screenin:20 [facility] ED Fall Risk Assessment (Adult) History of falling in the last 3 months, rs5 including since admission No falls in past 3 months (0 pts) Confusion or Disorientation No (0 pts) Intoxicated or Sedated No (0 pts) Impaired Gait No (0 pts) Mobility Assist Device Used No (0 pt) Altered Elimination No (0 pt) Score/Fall Risk Level 0 - 2 = Low Risk Oriented to surroundings, Maintained a safe environment. 11:20 Abuse screen: Denies threats or abuse. Nutritional screening: No deficits noted. rs5 Tuberculosis screening: No symptoms or risk factors identified. Assessment: 11:20 General: Appears in no apparent distress. uncomfortable, Behavior is calm, cooperative. rs5 Pain: Denies pain. Neuro: Level of Consciousness is awake, alert, obeys commands, Oriented to person, place, time, situation. Cardiovascular: Reports intermittent chest discomfort and palpitations since . Pt states "I have a-fib and I get palpitations and chest discomfort every now and but it's been happening more often since ." Heart tones S1 S2 present Rhythm is regular. 11:20 Respiratory: Airway is patent Respiratory effort is even, unlabored, Respiratory rs5 pattern is regular, symmetrical, Breath sounds are clear bilaterally. GI: Abdomen is round non-distended, Bowel sounds present X 4 quads. Abd is soft and non tender X 4 quads. Patient currently denies nausea, vomiting. : No signs and/or symptoms were reported regarding the genitourinary system. EENT: No signs and/or symptoms were reported regarding the EENT system. Derm: Skin is intact, Skin is pink, warm \\T\\ dry. Musculoskeletal: Range of motion: intact in all extremities. 12:27 Reassessment: attempted to perform ortho static. pt dizzy immediately upon standing, HR rs5 elevated to 185bpm. FARRAH Rico notified. hold orthostatics at this time. 12:28 Reassessment: A-fib with RVR noted on monitor, pt desaturated to 90%, Pt reports SOB, rs5 pt placed on 2L nasal cannula to maintain oxygen saturation above 95% converted to normal sinus rhythm within seconds, provider notified. 12:30 Cardiovascular: Denies chest pain, Rhythm is regular. rs5 12:30 Respiratory: Airway is patent Respiratory effort is even, unlabored, Respiratory rs5 pattern is regular, symmetrical. 12:36 Reassessment: Patient and/or family updated on plan of care and expected duration. Pain rs5 level reassessed. Patient is alert, oriented x 3, equal unlabored respirations, skin warm/dry/pink. 13:50 Reassessment: No changes from previously documented assessment. rs5 14:55 Reassessment: Patient and/or family updated on plan of care and expected duration. Pain rs5 level reassessed. Patient is alert, oriented x 3, equal unlabored respirations, skin warm/dry/pink. [place] provided per pt request. 15:15 Cardiovascular: Denies chest pain. Cardiovascular: Rhythm is regular. Respiratory: rs5 Airway is patent Respiratory effort is even, unlabored, Respiratory pattern is regular, symmetrical. Vital Signs: 11:20 BP 126 / 82; Pulse 89; Pulse Ox 98% on R/A; rs5 11:22 BP 150 / 87; Pulse 120; Resp 16; Temp 98.3; Pulse Ox 97% on R/A; Weight 63.5 kg; Height ll1 5 ft. 0 in. ; Pain 0/10; 12:30 BP 123 / 87; Pulse 90; Resp 17; Pulse Ox 99% on 2 lpm NC; rs5 12:40 BP 117 / 71; Pulse 88; Resp 18; Pulse Ox 98% on 2 lpm NC; rs5 13:42 BP 104 / 78; Pulse 91; Resp 17; Pulse Ox 99% on 2 lpm NC; rs5 14:50 BP 115 / 85; Pulse 77; Resp 17; Pulse Ox 98% on 2 lpm NC; rs5 15:20 BP 129 / 87; Pulse 94; Resp 17; Pulse Ox 98% on 2 lpm NC; rs5 11:22 Body Mass Index 27.34 (63.50 kg, 152.4 cm) ll1 11:22 Pain Scale: Adult ll1 ED Course: 11:13 Patient arrived in ED. im 11:14 Trisha Mccullough FNP is PHCP. jh7 11:14 Luis Juarez MD is Attending Physician. jh7 11:20 Patient has correct armband on for positive identification. Fall risk band placed. rs5 Placed in gown. Bed in low position. Side rails up X2. 11:21 Kumar Mak, ROSALINDA is Primary Nurse. rs5 11:22 Arm band placed on Patient placed in an exam room, on a stretcher. ll1 11:24 Triage completed. ll1 11:25 Inserted saline lock: 20 gauge in left antecubital area, using aseptic technique. Blood rs5 collected. 12:20 XRAY Chest (1 view) In Process Unspecified. EDMS 13:18 Eliud Bright is Hospitalizing Provider. jh7 15:35 No provider procedures requiring assistance completed. rs5 15:35 Patient admitted, IV remains in place. rs5 Administered Medications: 12:42 Drug: NS 0.9% IV 1000 ml IV at 1 bolus Per protocol; 1000 mL bolus Route: IV; Rate: 1 rs5 bolus; Site: right antecubital; 13:01 Follow up: Response: No adverse reaction rs5 13:37 Drug: Sotalol PO 80 mg PO once Route: PO; rs5 14:10 Follow up: Response: No adverse reaction rs5 Medication: 15:35 VIS not applicable for this client. rs5 Outcome: 13:19 Decision to Hospitalize by Provider. [facility] 15:35 Admitted to Med/surg accompanied by tech, family with patient, via stretcher, via rs5 wheelchair, with oxygen, on monitor, with chart, Report called to Nurse Katie 15:35 Condition: stable 15:35 Discharge instructions given to patient, Instructed on the need for admit, Demonstrated understanding of instructions, 15:42 Patient left the ED. nj1 Signatures: Dispatcher [facility] EDMS Gayathri Hernandez, RN RN 1 Trisha Mccullough FNP BLUNGER MACHINE OPERATOR 7 Zahra Wooten, RN RN [id number] Kumar Mak, RN RN rs5 Cintia Funes RN RN nj1 Alee Fabian Corrections: (The following items were deleted from the chart) 16:09 12:21 BP 123 / 87; Pulse 90bpm; Resp 17bpm; Pulse Ox 99% 2 lpm Nasal Cannula; rs5 rs5 16:09 16:06 BP 117 / 71; Pulse 88bpm; Resp 18bpm; Pulse Ox 98% 2 lpm Nasal Cannula; rs5 rs5 16:09 16:06 BP 104 / 78; Pulse 91bpm; Resp 17bpm; Pulse Ox 99% 2 lpm Nasal Cannula; rs5 rs5 16:09 16:06 BP 115 / 85; Pulse 77bpm; Resp 17bpm; Pulse Ox 98% 2 lpm Nasal Cannula; rs5 rs5 16:11 12:27 Reassessment: attempted to perform ortho static. pt dizzy immediately upon rs5 standing, HR elevated to 185bpm. FARRAH Rico notified. hold orthostatics at this time. kc6 16:11 11:20 BP 126 / 82; Pulse 89bpm; Pulse Ox 98% 2 lpm Nasal Cannula; rs5 rs5 16:11 16:09 BP 129 / 87; Pulse 94bpm; Resp 17bpm; Pulse Ox 98% RA; rs5 rs5 16:14 12:28 Reassessment: A-fib with RVR noted on monitor, pt converted to normal sinus rs5 rhythm within seconds, provider notified. Pt reports SOB rs5 16:15 13:50 Reassessment: Patient and/or family updated on plan of care and expected rs5 duration. Pain level reassessed. Patient is alert, oriented x 3, equal unlabored respirations, skin warm/dry/pink. [place] provided per pt request. rs5 16:17 12:28 Reassessment: A-fib with RVR noted on monitor, pt converted to normal sinus rs5 rhythm within seconds, provider notified. Pt reports SOB, pt placed on 2L nasal cannula to maintain oxygen saturation above 95% rs5
--- NOTE | 2023-04-30 13:19 | EDPHYS ---
Physician Documentation [facility] Name: Aria Pitts Age: 47 yrs Sex: Female : 1975 Arrival Date: 04/30/2023 Time: 11:10 Bed 20 Private MD: ED Physician Luis Juarez HPI: 04/30 11:22 This 47 yrs old Female presents to ER via Wheelchair with complaints of AFIB. jh7 11:22 Onset: The symptoms/episode began/occurred 3 day(s) ago. Associated signs and symptoms: jh7 Pertinent positives: dizziness, Pertinent negatives: abdominal pain, chest pain, shortness of breath. 47-year-old female presents to the ER complaining of palpitations, high heart rate, dizziness, and near syncope since . Reports that her heart rate goes from the 90s to the 180s when changing positions. Reports that she is a patient of Dr. Bright and he advised to go to the ER. She has a history of A-fib and takes metoprolol and Xarelto.. Historical: - Allergies: 11:22 No Known Drug Allergies; ll1 - PMHx: 11:22 Atrial fibrillation; ll1 - PSHx: 11:22 A fib ablation; ll1 - Immunization history:: Adult Immunizations up to date. - Social history:: Smoking status: Patient denies any tobacco usage or history of. ROS: 11:22 Constitutional: Negative for fever, chills, and weight loss, Eyes: Negative for injury, jh7 pain, redness, and discharge, Neck: Negative for injury, pain, and swelling, Respiratory: Negative for shortness of breath, cough, wheezing, and pleuritic chest pain, Abdomen/GI: Negative for abdominal pain, nausea, vomiting, diarrhea, and constipation, MS/Extremity: Negative for injury and deformity, Skin: Negative for injury, rash, and discoloration, 11:22 Cardiovascular: Positive for palpitations, Negative for chest pain, edema, 11:22 Neuro: Positive for dizziness, near syncope, weakness, Negative for altered mental status, headache, visual changes, 11:22 All other systems are negative, Exam: 11:22 Constitutional: This is a well developed, well nourished patient who is awake, alert, jh7 and in no acute distress. Head/Face: Normocephalic, atraumatic. Neck: Trachea midline, no thyromegaly or masses palpated, and no cervical lymphadenopathy. Supple, full range of motion without nuchal rigidity, or vertebral point tenderness. No Meningismus. Cardiovascular: Regular rate and rhythm with a normal S1 and S2. No gallops, murmurs, or rubs. Normal PMI, no JVD. No pulse deficits. Respiratory: Lungs have equal breath sounds bilaterally, clear to auscultation and percussion. No rales, rhonchi or wheezes noted. No increased work of breathing, no retractions or nasal flaring. Abdomen/GI: Soft, non-tender, with normal bowel sounds. No distension or tympany. No guarding or rebound. No evidence of tenderness throughout. Skin: Warm, dry with normal turgor. Normal color with no rashes, no lesions, and no evidence of cellulitis. MS/ Extremity: Pulses equal, no cyanosis. Neurovascular intact. Full, normal range of motion. 11:22 Neuro: Orientation: to person, place, time \T\ situation. Mentation: is normal, Memory: is normal, Cranial nerves: grossly normal, Cerebellar function: is grossly normal, Vital Signs: 11:20 BP 126 / 82; Pulse 89; Pulse Ox 98% on R/A; rs5 11:22 BP 150 / 87; Pulse 120; Resp 16; Temp 98.3; Pulse Ox 97% on R/A; Weight 63.5 kg; Height ll1 5 ft. 0 in. ; Pain 0/10; 12:30 BP 123 / 87; Pulse 90; Resp 17; Pulse Ox 99% on 2 lpm NC; rs5 12:40 BP 117 / 71; Pulse 88; Resp 18; Pulse Ox 98% on 2 lpm NC; rs5 13:42 BP 104 / 78; Pulse 91; Resp 17; Pulse Ox 99% on 2 lpm NC; rs5 14:50 BP 115 / 85; Pulse 77; Resp 17; Pulse Ox 98% on 2 lpm NC; rs5 15:20 BP 129 / 87; Pulse 94; Resp 17; Pulse Ox 98% on 2 lpm NC; rs5 11:22 Body Mass Index 27.34 (63.50 kg, 152.4 cm) ll1 11:22 Pain Scale: Adult ll1 MDM: 11:14 Patient medically screened. jh7 12:05 ED course: RN Kumar notified me that the patient failed orthostatics and that she jh7 became extremely tachycardic when changing positions. Will give a fluid bolus and reevaluate.. 13:12 Data reviewed: vital signs, nurses notes, lab test result(s), EKG, radiologic studies, [facility] plain films. Consideration of Admission/Observation Patient was admitted/placed on observation. Management of patient was discussed with the following: Hospitalist: Dr. Bright. Fruit Harvester Machine Operator: Dr. Bright, Cardiology. Advised decreasing the patient's metoprolol to 25 mg, starting sotalol 80 mg twice daily with the first dose starting now, and continuing Xarelto.. I considered the following discharge prescriptions or medication management in the emergency department Medications were administered in the Emergency Department. See MAR. Independent interpretation of the following test(s) in the Emergency Department EKG: See my EKG interpretation above. Counseling: I had a detailed discussion with the patient and/or guardian regarding the historical points, exam findings, and any diagnostic results supporting the discharge/admit diagnosis, the need for further work-up and treatment in the hospital. Response to treatment: the patient's symptoms have mildly improved after treatment. 04/30 11:23 Order name: Basic Metabolic Panel; Complete Time: 12:09 [facility] 04/30 11:23 Order name: CBC with Diff; Complete Time: 12: [facility] 04/30 11:23 Order name: LFT's; Complete Time: 12:09 [facility] 04/30 11:23 Order name: Magnesium; Complete Time: 12:09 [facility] 04/30 11:23 Order name: NT PRO-BNP; Complete Time: 12:09 [facility] 04/30 11:23 Order name: PT-INR; Complete Time: 12:09 [facility] 04/30 11:23 Order name: Troponin HS; Complete Time: 12:09 [facility] 04/30 12:38 Order name: D-Dimer; Complete Time: 13:11 [facility] 04/30 13:35 Order name: T4 Free [facility] 04/30 13:35 Order name: Thyroid Stimulating Hormone [facility] 04/30 13:35 Order name: Basic Metabolic Panel [facility] 04/30 13:35 Order name: Basic Metabolic Panel [facility] 04/30 13:35 Order name: Basic Metabolic Panel [facility] 04/30 13:35 Order name: Basic Metabolic Panel EDMS 04/30 13:35 Order name: Basic Metabolic Panel EDMS 04/30 13:35 Order name: Basic Metabolic Panel EDMS 04/30 13:35 Order name: CBC with Automated Diff EDMS 04/30 13:35 Order name: CBC with Automated Diff EDMS 04/30 13:35 Order name: CBC with Automated Diff EDMS 04/30 13:35 Order name: CBC with Automated Diff EDMS 04/30 13:35 Order name: CBC with Automated Diff EDMS 04/30 13:35 Order name: CBC with Automated Diff EDMS 04/30 13:35 Order name: Lipid Profile EDMS 04/30 13:35 Order name: Lipid Profile EDMS 04/30 13:35 Order name: Magnesium EDMS 04/30 13:35 Order name: Magnesium EDMS 04/30 13:35 Order name: Magnesium EDMS 04/30 13:35 Order name: Magnesium EDMS 04/30 13:35 Order name: Magnesium EDMS 04/30 13:35 Order name: Magnesium EDMS 04/30 13:35 Order name: Phosphorus EDMS 04/30 13:35 Order name: Phosphorus EDMS 04/30 13:35 Order name: Phosphorus EDMS 04/30 13:35 Order name: Phosphorus EDMS 04/30 13:35 Order name: Phosphorus EDMS 04/30 13:35 Order name: Phosphorus EDMS 04/30 13:35 Order name: Troponin High Sensitivity EDMS 04/30 13:35 Order name: Troponin High Sensitivity EDMS 04/30 13:35 Order name: Troponin High Sensitivity EDMS 04/30 11:23 Order name: XRAY Chest (1 view); Complete Time: 12:35 [facility] 04/30 11:23 Order name: EKG; Complete Time: 11:24 [facility] 04/30 13:35 Order name: CONS Physician Consult EDMS 04/30 11:23 Order name: Cardiac monitoring; Complete Time: 11:57 [facility] 04/30 11:23 Order name: EKG - Nurse/Tech; Complete Time: 11:57 [facility] 04/30 11:23 Order name: IV Saline Lock; Complete Time: 11:57 [facility] 04/30 11:23 Order name: Labs collected and sent; Complete Time: 11:57 [facility] 04/30 11:23 Order name: O2 Per Protocol; Complete Time: 11:57 jh7 04/30 11:23 Order name: O2 Sat Monitoring; Complete Time: :57 7 EC: Rate is 96 beats/min. Rhythm is regular. QRS [place] is Normal. [place] interval is prolonged jh at 278 msec. QRS interval is normal at 124 msec. QT interval is normal at 380 msec. No Q waves. Clinical impression: Sinus rhythm with first-degree AV block, premature supraventricular complexes, right bundle branch block, left anterior fascicular block, and bifascicular block. Administered Medications: 12:42 Drug: NS 0.9% IV 1000 ml IV at 1 bolus Per protocol; 1000 mL bolus Route: IV; Rate: 1 rs5 bolus; Site: right antecubital; 13:01 Follow up: Response: No adverse reaction rs5 13:37 Drug: Sotalol PO 80 mg PO once Route: PO; rs5 14:10 Follow up: Response: No adverse reaction rs5 Disposition Summary: 04/30/23 13:19 Hospitalization Ordered Notes: Hospitalization Status: Inpatient Admission [facility] Provider: Eliud Bright [facility] Condition: Stable [facility] Problem: new [facility] Symptoms: are unchanged [facility] Bed/Room Type: Standard [facility] Location: Telemetry/MedSurg (Inpatient)(04/30/23 15:15) Room Assignment: [facility](04/30/23 15:15) Diagnosis - Palpitations [facility] - Tachycardia, unspecified [facility] - Dizziness and giddiness [facility] - Unspecified atrial fibrillation [facility] Forms: - Medication Reconciliation Form [facility] - SBAR form [facility] - Leadership Thank You Letter [facility] Signatures: Dispatcher [employer] EDMS Suzanne Cam Lynsay RN RN ll1 Trisha Mccullough FNP COLLECTION ADVISOR 7 Nereyda Ramos, RN RN kb3 Kumar Mak, RN RN rs5 Corrections: (The following items were deleted from the chart) 13:48 12:12 Orthostatics ordered. [facility] rs5 14:59 13:19 Telemetry/MedSurg (Inpatient) [facility] kb3 14:59 13:19 [facility] kb3 15:15 14:59 [facility] ER HOLD kb3 bd 15:15 14:59 ERHOLD- kb3 bd
[2023-04-30] MEDS: SOTALOL HCL 80 MG TAB PO SCH ×2 (13:31→17:00)
[2023-04-30] MEDS ORDERED: SOTALOL HCL 80 MG TAB ONE (13:46)
--- NOTE | 2023-04-30 14:23 | P.HP ---
Patient History Date of Service: 04/30/23 Reason for admission: palpitations History of Present Illness: Aria Pitts is a pleasant 47 year old female with a past medical history of Atrial fibrillation and afib ablation. Aria reports feeling symptomatic heart palpiations night while sitting watching TV. Her next episode was while walking on Sunday and again Sunday night when she needed to sit on the floor. Episodes kept occuring throught the weekend. She called Dr. Bright to inform him and he sent her to the ED. Dr. Bright requested Sotalol 80 mg BID, change to the metoprolol to 25 mg BID, and xarelto 20 mg daily. Initial vitals BP 150 / 87; Pulse 120; Resp 16; Temp 98.3; Pulse Ox 97% on R/A. significant labs BNP 2223, trop 7.9 with serial pending. CXR "Mild interstitial pulmonary edema. The heart is mildly enlarged. No displaced fractures, mild COPD" EKG: Rate is 96 beats/min. Rhythm is regular. QRS [place] is Normal. [place] interval is prolonged at 278 msec. QRS interval is normal at 124 msec. QT interval is normal at 380 msec. No Q waves. Clinical impression: Sinus rhythm with first- degree AV block, premature supraventricular complexes, right bundle branch block, left anterior fascicular block, and bifascicular block. Of note: Aria reports having an "unusual" beat while on sotalol previously requiring her to stop taking it. This information was passed on to Dr. Bright. Aria will be admitted to hospitalist service for further evaluation and treatment. Dr. Bright's recommendations will be followed. Allergies No Known Drug Allergies Allergy (Verified 04/29/19 12:44) Unknown Home Medications: Metoprolol Tartrate 50 mg PO DAILY 04/30/23 Rivaroxaban [Xarelto*] 20 mg PO DAILY AT SUPPER 04/30/23 - Past Medical/Surgical History Diabetic: No -: ASD/VSD defect -: AFIB -: tubal ligation -: Fontan procedure -: cleft palate repair -: x1 - Family History Mother -: Other (see notes) Notes: HTN - Social History Alcohol use: Yes CD- Drugs: No Caffeine use: No Review of Systems Respiratory: Shortness of Breath Cardiovascular: Palpitations Neurological: Other (dizziness) Physical Examination - Physical Exam General: Alert, In no apparent distress, Oriented x3 HEENT: Atraumatic, Normocephalic, PERRLA Neck: Supple, 2+ carotid pulse no bruit, JVD not distended Respiratory: Clear to auscultation bilaterally, Normal air movement Cardiovascular: No edema, Normal S1 S2, Other (tachycardic), Irregular heart rate/rhythm Capillary refill: <2 Seconds Gastrointestinal: Normal bowel sounds, Soft and benign Musculoskeletal: No clubbing, No swelling, No contractures Integumentary: No rashes, No breakdown, No significant lesion, No tenderness/swelling Neurological: Normal speech, Normal strength at 5/5 x4 extr, Normal tone - Studies Laboratory Data (last 24 hrs) 04/30/23 04/30/23 04/30/23 11:30 11:30 11:30 WBC 9.00 Hgb 15.8 H Hct 45.6 H Plt Count 238 PT 25.5 H INR 2.32 Sodium 137 Potassium 3.9 BUN 15 Creatinine 0.90 Glucose 143 H Magnesium 2.0 Total Bilirubin 0.8 AST 13 L ALT 30 Alkaline Phosphatase 75 Assessment and Plan - Plan Assessment and Plan SVT hx Afib Right bundle branch block 1st degree heart block Dr. Bright sent her to the ED started Sotalol now Sotalol 80 mg BID metoprolol changed from 50 -25 BID continue xarelto ECHO TSH, T4 EKG: Rate is 96 beats/min. Rhythm is regular. QRS [place] is Normal. [place] interval is prolonged at 278 msec. QRS interval is normal at 124 msec. QT interval is normal at 380 msec. No Q waves. Clinical impression: Sinus rhythm with first-degree AV block, premature supraventricular complexes, right bundle branch block, left anterior fascicular block, and bifascicular block. Mild interstitial pulmonary edema Mild CHF CXR reported monitor Hypoglycemia serum glucose 143 Will monitor in AM labs A1C DVT ppx lovenox Full code LOS 2 days Discharge Plan: Home Plan to discharge in: 48 Hours - Advance Directives Does patient have a Living Will: No Does patient have a Durable POA for Healthcare: No Time Spent Managing Pts Care (In Minutes): 55
[2023-04-30 14:42] VITALS: BMI 27.3
[2023-04-30] MEDS ORDERED: INFLUENZA VACCINE (for 6+ mo) 0.5 ML DOSE IMVAC ONE (16:00)
[2023-04-30] MEDS: RIVAROXABAN 20 MG TABLET PO SCH (16:59)
[2023-04-30] MEDS ORDERED: RIVAROXABAN 20 MG TABLET PO SCH (17:00)
[2023-04-30] MEDS: METOPROLOL XL 25 MG TAB PO SCH (20:27)
[2023-04-30 20:47] LABS: Thyroid Stimulating Hormone 3.22 uIU/mL (0.358-3.740)
[2023-04-30 21:20] VITALS: O2SAT 96
[2023-05-01 02:45] LABS: Absolute Lymphocytes (CBC) 2.9 K/uL (0.7-4.9); Hematocrit 39.5 % (36.0-45.0); Lymphocytes % 35.4 % (15.3-44.8); MCV 91.5 fL (80-100); MPV 10.3 fL (7.6-11.3); Platelets 200 thou/uL (152-406); RBC Red Blood Cell Count 4.32 M/uL (3.86-4.86)
[2023-05-01 03:10] LABS: Phosphorus 3.6 mg/dL (2.5-4.9); Potassium 3.8 mEq/L (3.5-5.1)
[2023-05-01] MEDS: SOTALOL HCL 80 MG TAB PO SCH ×2 (06:26→17:14)
[2023-05-01] MEDS ORDERED: POTASSIUM CL SA 10 MEQ TAB PO ONE (09:00)
[2023-05-01] MEDS: METOPROLOL XL 25 MG TAB PO SCH ×2 (09:00→21:00)
--- NOTE | 2023-05-01 16:50 | P.PN ---
Date of Service: 05/01/23 Subjective: Doing well, no further episodes of palpitations ROS: 10 point ROS as noted above, otherwise negative Physical exam GEN: Alert, oriented, NAD HEENT: Normal conjunctiva, sclera anicteric CV: Regular rate and rhythm, no edema Pulm: Nonlabored respirations on room air ABD: Soft, nontender, nondistended MSK: No joint tenderness Integumentary: No rashes Neuro: Normal speech, normal affect Vitals reviewed Problem List Atrial fibrillation with rapid ventricular response-chronic A-fib on anticoagulation Started on reduced dose to sotalol 40 mg twice daily as patient has previously had prolonged QTc No further episodes of A-fib noted thus far Continue to monitor on telemetry overnight, repeat EKG in the morning continue xarelto Mild interstitial pulmonary edema Mild CHF Likely secondary to rapid A-fib, on room air denies shortness of breath or chest pain Echo pending Hyperglycemia serum glucose 143 Will monitor in AM labs A1C VTE: Continue xarelto Code: Full Dispo: 24 hours Time Spent Managing Pts Care (In Minutes): 35 <Cale Warren - Last Filed: 05/01/23 16:46> Patient seen and examined on rounds this morning. Plan of care discussed with [employer] MAKER Briana. Agree with plan as noted above with the following additions/corrections: Patient denies any recent illness, no change in medications, no change in prescription/solo-grf-[id number] medications Denies any recent change in weight, no increased lower extremity edema Uncertain why patient is having more symptomatic episodes of her A-fib Echocardiogram ordered Cardiology consulted Continue sotalol, hold metoprolol given bradycardia/low blood pressure Repeat EKG to monitor QTc Possibly sleep apnea may be playing a role, would benefit from outpatient sleep study <Chiot Gray - Last Filed: 05/01/23 17:14>
[2023-05-01] MEDS: RIVAROXABAN 20 MG TABLET PO SCH (17:18)
[2023-05-02] MEDS: SOTALOL HCL 80 MG TAB PO SCH ×2 (06:00→09:14)
[2023-05-02 07:06] LABS: Absolute Lymphocytes (CBC) 2.2 K/uL (0.7-4.9); Hematocrit 40.1 % (36.0-45.0); MCV 92.2 fL (80-100); MPV 10.6 fL (7.6-11.3); Platelets 200 thou/uL (152-406); RBC Red Blood Cell Count 4.35 M/uL (3.86-4.86)
[2023-05-02 07:13] LABS: Phosphorus 4.5 mg/dL (2.5-4.9); Potassium 4.1 mEq/L (3.5-5.1)
--- NOTE | 2023-05-02 07:14 | ECHO ---
HEIGHT: 5 ft 0 in WEIGHT: 140 lb 0 oz DATE OF STUDY: 05/01/[address]: Claudia Osorio NP 2-DIMENSIONAL: YES M.MODE: YES DOPPLER: YES COLOR FLOW: YES TDS: YES PORTABLE: YES DEFINITY: BUBBLE STUDY: DIAGNOSIS: TACHYCARDIA CARDIAC HISTORY: CATHERIZATION: NO SURGERY: YES PROSTHETIC VALVE: PACEMAKER: NO MEASUREMENTS (cm) DIASTOLIC (NORMALS) SYSTOLIC (NORMALS) IVSd 0.9 (0.6-1.2) LA Diam 2.3 (1.9-4.0) LVEF 60% LVIDd 4.1 (3.5-5.7) LVIDs 3.2 (2.0-3.5) %FS LVPWd 1.1 (0.6-1.2) Ao Diam 3.0 (2.0-3.7) 2 DIMENSIONAL ASSESSMENT: RIGHT ATRIUM: NORMAL LEFT ATRIUM: NORMAL RIGHT VENTRICLE: NORMAL LEFT VENTRICLE: NORMAL TRICUSPID VALVE: NORMAL MITRAL VALVE: MILD MITRAL REGURGITATION PULMONIC VALVE: NORMAL AORTIC VALVE: NORMAL PERICARDIAL EFFUSION: NONE AORTIC ROOT: NORMAL LEFT VENTRICULAR WALL MOTION: NORMAL DOPPLER/COLOR FLOW: MILD MITRAL REGURGITATION COMMENTS: 1. NORMAL LEFT VENTRICULAR EJECTION FRACTION 60-65% 2. NORMAL WALL MOTION 3. MILD MITRAL REGURGITATION TECHNOLOGIST: ARMANI BURKS
[2023-05-02] MEDS: METOPROLOL XL 25 MG TAB PO SCH (09:13)
--- NOTE | 2023-05-02 10:55 | P.PN ---
Date of Service: 05/02/23 Subjective: Doing well, no further episodes of palpitations ROS: 10 point ROS as noted above, otherwise negative Physical exam GEN: Alert, oriented, NAD HEENT: Normal conjunctiva, sclera anicteric CV: Regular rate and rhythm, no edema Pulm: Nonlabored respirations on room air ABD: Soft, nontender, nondistended MSK: No joint tenderness Integumentary: No rashes Neuro: Normal speech, normal affect Vitals reviewed Problem List Atrial fibrillation with rapid ventricular response-chronic A-fib on anticoagulation QTC 513 this morning, D/W cardiology, DC sotalol, increase home metoprolol succinate from 50mg daily to 100mg daily Observe for 24 hours due to prolonged QTC/sotalol No further episodes of A-fib noted thus far Continue to monitor on telemetry overnight, repeat EKG in the morning continue xarelto Mild interstitial pulmonary edema Likely secondary to rapid A-fib, on room air denies shortness of breath or chest pain Echo with normal EF Hyperglycemia A1C WNL VTE: Continue xarelto Code: Full Dispo: 24 hours Time Spent Managing Pts Care (In Minutes): 35
[2023-05-02] MEDS: RIVAROXABAN 20 MG TABLET PO SCH (18:10)
[2023-05-03] MEDS ORDERED: METOPROLOL XL 100 MG TAB PO SCH (06:00)
[2023-05-03 06:20] LABS: Absolute Lymphocytes (CBC) 1.8 K/uL (0.7-4.9); Hematocrit 39.9 % (36.0-45.0); Lymphocytes % 24.9 % (15.3-44.8); MCV 91.8 fL (80-100); MPV 10.2 fL (7.6-11.3); Platelets 189 thou/uL (152-406); RBC Red Blood Cell Count 4.35 M/uL (3.86-4.86)
[2023-05-03 06:39] LABS: Magnesium 2.5 mg/dL (1.6-2.4); Phosphorus 3.7 mg/dL (2.5-4.9); Potassium 3.9 mEq/L (3.5-5.1)
[2023-05-03] MEDS ORDERED: POTASSIUM CL SA 10 MEQ TAB PO ONE (08:00)
[2023-05-03 08:39] VITALS: TEMP 97
--- NOTE | 2023-05-03 11:44 | P.DS ---
Admission Date: 05/02/23 Discharge Date: 05/03/23 Disposition: ROUTINE DISCHARGE Discharge Condition: GOOD Reason for Admission: palpitations Consultations: Cardiology Brief History of Present Illness: Aria Pitts is a pleasant 47 year old female with a past medical history of Atrial fibrillation and afib ablation. Aria reports feeling symptomatic heart palpiations night while sitting watching TV. Her next episode was while walking on Sunday and again Sunday night when she needed to sit on the floor. Episodes kept occuring throught the weekend. She called Dr. Bright to inform him and he sent her to the ED. Dr. Bright requested Sotalol 80 mg BID, change to the metoprolol to 25 mg BID, and xarelto 20 mg daily. Initial vitals BP 150 / 87; Pulse 120; Resp 16; Temp 98.3; Pulse Ox 97% on R/A. significant labs BNP 2223, trop 7.9 with serial pending. CXR "Mild interstitial pulmonary edema. The heart is mildly enlarged. No displaced fractures, mild COPD" EKG: Rate is 96 beats/min. Rhythm is regular. QRS [place] is Normal. MD interval is prolonged at 278 msec. QRS interval is normal at 124 msec. QT interval is normal at 380 msec. No Q waves. Clinical impression: Sinus rhythm with first- degree AV block, premature supraventricular complexes, right bundle branch block, left anterior fascicular block, and bifascicular block. Of note: Aria reports having an "unusual" beat while on sotalol previously requiring her to stop taking it. This information was passed on to Dr. Bright. Aria will be admitted to hospitalist service for further evaluation and treatment. Dr. Bright's recommendations will be followed. Hospital Course: Problem list Atrial fibrillation with rapid ventricular response-history of chronic A-fib on anticoagulation Patient was admitted for atrial fibrillation with rapid ventricular response, she has had underlying history of atrial fibrillation for which she is taking metoprolol succinate 50 mg daily previously. Initially she was trialed on sotalol but developed prolonged QTc, for this reason sotalol was held and she was observed an additional day in the hospital. Her metoprolol succinate was titrated to 100 mg daily, she remained in sinus rhythm without further episodes of atrial fibrillation. She will be cleared to follow-up with her primary care doctor and cardiology in 1 to 2 weeks. Vital Signs/Physical Exam: Temp Pulse Resp BP Pulse Ox 97.0 F 65 14 119/59 L 95 05/03/23 08:00 05/03/23 08:00 05/03/23 08:00 05/03/23 08:00 05/03/23 08:00 General: Alert, In no apparent distress, Oriented x3 HEENT: Atraumatic, PERRLA Neck: Supple Respiratory: Clear to auscultation bilaterally, Normal air movement Cardiovascular: Regular rate/rhythm, Normal S1 S2 Gastrointestinal: Normal bowel sounds Musculoskeletal: No tenderness Integumentary: No rashes Neurological: Normal speech, Normal affect Laboratory Data at Discharge: WBC 7.30 thou/uL (4.3-10.9) 05/03/23 06:01 Hgb 13.6 g/dL (12.0-15.0) 05/03/23 06:01 Hct 39.9 % (36.0-45.0) 05/03/23 06:01 Plt Count 189 thou/uL (152-406) 05/03/23 06:01 PT 25.5 SECONDS (9.5-12.5) H 04/30/23 11:30 INR 2.32 04/30/23 11:30 Sodium 139 mEq/L (136-145) 05/03/23 06:01 Potassium 3.9 mEq/L (3.5-5.1) 05/03/23 06:01 BUN 17 mg/dL (7-18) 05/03/23 06:01 Creatinine 0.79 mg/dL (0.55-1.02) 05/03/23 06:01 Glucose 104 mg/dL (74-106) 05/03/23 06:01 Phosphorus 3.7 mg/dL (2.5-4.9) 05/03/23 06:01 Magnesium 2.5 mg/dL (1.6-2.4) H 05/03/23 06:01 Total Bilirubin 0.8 mg/dL (0.2-1.0) 04/30/23 11:30 AST 13 U/L (15-37) L 04/30/23 11:30 ALT 30 U/L (13-56) 04/30/23 11:30 Alkaline Phosphatase 75 U/L (45-117) 04/30/23 11:30 Triglycerides 144 mg/dL (<150) 05/01/23 02:16 Cholesterol 163 mg/dL (<200) 05/01/23 02:16 HDL Cholesterol 31 mg/dL (40-60) L 05/01/23 02:16 Cholesterol/HDL Ratio 5.26 05/01/23 02:16 Home Medications: Rivaroxaban [Xarelto*] 20 mg PO DAILY AT SUPPER 04/30/23 Metoprolol Succinate 100 mg PO DAILY #30 tab 05/03/23 New Medications: Metoprolol Succinate 100 mg PO DAILY #30 tab Physician Discharge Instructions: Patient was admitted for atrial fibrillation with rapid ventricular response, she has had underlying history of atrial fibrillation for which she is taking metoprolol succinate 50 mg daily previously. Initially she was trialed on sotalol but developed prolonged QTc, for this reason sotalol was held and she was observed an additional day in the hospital. Her metoprolol succinate was titrated to 100 mg daily, she remained in sinus rhythm without further episodes of atrial fibrillation. She will be cleared to follow-up with her primary care doctor and cardiology in 1 to 2 weeks. Diet: AHA Activity: Ad arely Followup: Alfredo Bright MD [ACTIVE - CAN ADMIT] - 1-2 Weeks ROSALIO RITCHIE [Primary Care Provider] - 1 Week Time spent managing pt's care (in minutes): 35
[2023-05-03 12:13] VITALS: BP 137/62
== END 2023-05-03 13:52 | disposition home or self-care (01) | DRG 309 ==
LOC: ER 11:10 → ERHOLD 13:27 → 4TH 15:27 → OBSVTOIN 05-02 14:22
PROVIDERS: ADMIT Internal Medicine; ATTEND Hospitalist
DX: I48.91 Unspecified atrial fibrillation (principal); I50.1 Left ventricular failure, unspecified; I45.2 Bifascicular block; I47.10 Supraventricular tachycardia, unspecified; I44.0 Atrioventricular block, first degree; E16.2 Hypoglycemia, unspecified; Z98.51 Tubal ligation status; Z79.01 Long term (current) use of anticoagulants; Z79.899 Other long term (current) drug therapy
CPT/HCPCS: 36415; 71045; 80048; 80061; 80076; 83036; 83735; 83880; 84100; 84439; 84443; 84484; 85025; 85379; 85610; 93005; 93306; 99285; G0378; J7030

== ENCOUNTER 2023-12-17 11:43 | Emergency (ER) | payer BC ==
--- OUTSIDE RECORDS SUMMARY | 2023-12-17 11:47 | XMS REPORT | Continuity of Care Document ---
Author Name Unknown Address [address] [facility] [address] [place] [address] [facility] thconnect Address [address] [facility] [address] [place] [address] Care Team Providers Care Licensing Manager Name Role Phone Zach Wilson Attending Clinician Roseanna marley GC_GCBZW_Kadiyala_S Attending Clinician Wandaa ble Zach Wilson Admitting Clinician Roseanna marley GC_GCBZW_Kadiyala_S Admitting Clinician Jabier frost Payers Payer Name Policy Type Policy Number Effective Date Expirati on Date Source Problems Condition Name Condition Details Condition Category Status Onset Date Resolution Date Last Treatment Date Treating Clinician Comments Source Cough Cough Diagnosis Active [facility] Mild reactive airways disease, 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 Ordering Clinician Indication Dosage Frequency Signature (SIG) Comments Components Source Medrol Medrol 2018-06 00:00: 00 05-07 00:00 :00 No Nieves Cannon as directed [facility] Propafenone HCl Propafenone HCl Yes Nieves Cannon 1 tablet [facility] Xarelto Xarelto Yes Nieves Cannon 1 tablet with food [facility] Procedures Procedure Date / Time Performed Performing Clinicia n Source [id number] 2021-11-15 00:00:00 CUEJO.01 [facility] [id number] 2021-11-15 00:00:00 CUEJO.01 [facility] [id number] 2021-11-15 00:00:00 CUEJO.01 [facility] Encounters Start Date/Time End Date/Time Encounter Type Admission Type Attending Clinicians Care Facility Care Department Encounter ID Source 2021-11-15 06:48:00 Inpatient Zach Moy [facility] MED[facility]01 [id number] [facility] 2023-04-20 00:00:00 2023-04-20 00:00:00 Outpatient GC_GCBZW_Ka diyala_S [facility] [id number] [facility] 2021-11-16 17:00:00 2021-11-17 14:46:00 Inpatient NAEEM Zach Wilson [facility]01 [id number] [facility] 2021-11-16 17:00:00 2021-11-17 14:46:00 Inpatient NAEEM Zach Wilson [facility]01 [id number] [facility] 2019-05-05 08:37:00 2019-05-05 08:37:00 [facility] [id number] [facility] 2019-05-02 13:40:00 2019-05-02 13:40:00 [facility] [id number] [facility] Results Test Description Test Time Test Comments Results Result Co mments Source - XR T-SPINE 3V 2021-11-17 00:00:00 [facility] DANIELLE [place]: JESSICA OLSEN : 1975 Sex: F FAX: Zach Hankins [phone] [place]: St: ADM Name: JESSICA OLSEN [facility] Rousseau : 1975 Age/S: 45/F [address] [place] [address] Unit #: [id number] Loc: G.5535 [place] [address] Phys: Zach Wilson MD Acct: [id number] Dis Date: Status: ADM IN PHONE #: [phone] Exam Date: 11/17/20218 FAX #: [phone] Reason: INTENSE BACK PAIN EXAMS: CPT CODE: [id number] XR T-SPINE 3V [id number] PROCEDURE INFORMATION: Exam: XR Thoracic Spine Exam [...] MD Technologist: RT Rashaad(R) Trnscrd Date/Time/By: 11/17/2021 (0756) : By: [email or web address] Orig Print D/T: S: 11/17/2021 (2256) PAGE 1 Signed Report [id number] 08:48:00* Test Item Value Reference Range Interpretation Comme nts ACT-ISTAT (test code = ACTI) 347 SEC 74-137 H Performed by cer tified windrower operator at [facility] [id number] 08:31:00* Test Item Value Reference Range Interpretation Comme nts ACT-ISTAT (test code = ACTI) 335 SEC 74-137 H Performed by cer tified windrower operator at [facility] POC ARTERIAL BLOOD [id number] 08:17:00* Test Item Value Reference Range Interpretation Comme nts POC ARTERIAL BLOOD GAS PH (t est code = POCPHA) 7.385 7.35-7.45 N POC ARTERIAL BLOOD GAS PCO2 (test code = MBXXBU6I) 35.2 mmHg 35.0-45 N POC TCO2 ARTERIAL (test code = POCTCO2) 22.1 POC ARTERIAL BLOOD GAS PO2 ( test code = PFOAR2P) 147.2 mmHg 80-100.0 H POC HCO3 ARTERIAL (test code = WLXWRO5S) 21.0 MMOL/L 22.0-26.0 L POC BASE EXCESS (test code = POCBEA) -3.4 MMOL/L -4.0-4.0 N POC O2 SATURATION (test code = POCO2S) 99.3 % 90-100 N BASIC METABOLIC [id number] 08:17:00* Test Item Value Reference Range Interpretation Comme nts SODIUM (test code = NA/ABG) 143 MEQ/L 134-147 N POTASSIUM (test code = K/ABG) 3.8 MEQ/L 3.4-5.0 N CHLORIDE (test code = CL/ABG) 110 MEQ/L 100-108 H CREATININE ABG (test code = CREAABG) 0.5 mg/dL 0.6-1.0 L POC IONIZED CALCIUM (test co de = POCCA) 1.14 MMOL/L 1.12-1.32 N POC GLUCOSE (test code = POCGLU) 105 MG/DL HEMOGLOBIN [id number] 08:17:00* Test Item Value Reference Range Interpretation Comme nts HEMOGLOBIN ABG (test code = HGB/ABG) 13.7 G/DL 11.0-15.0 N [id number] 08:17:00* Test Item Value Reference Range Interpretation Comme nts HEMATOCRIT (test code = HCT/ABG) 40 % 33.0-45.0 N POC LACTIC [id number] 08:17:00* Test Item Value Reference Range Interpretation Comme nts POC LACTIC ACID (test code = POCLAC) 0.9 mmol/l 0.9-1.7 N HCG SERUM [id number] 07:50:00* Test Item Value Reference Range Interpretation Comme nts HCG SERUM QUAL (test code = HCGQL) SERUM NEGATIVE NEGATIVE Novel Coronavirus 2019 [id number] 23:44:00* Test Item Value Reference Range Interpretation Comme nts Novel Coronavirus 2019 Inhouse (test code = COVNONPUI) Negative Negative Positive resul ts are indicative of the presence gtTMSX-UbB-6 RNA, clinical correlation with patient historyand other diagnostic information is necessary to determinepatient infection status. Positive results do not rule outbacterial infection or co-infection with other viruses. Negative results do not preclude SARS-CoV-2 infection andshould not be used as the sole basis for patient managementdecisions. Negative results must be combined with otherclinical observations, patient history, and epidemiologicalinformation . Detection of SARS-CoV-2 RNA may be affected bysample collection methods, storage conditions, and/or stageof infection. Viral RNA mutations, vaccinations, antiviraltherapeutics, antibiotics, chemotherapeutic orimmunosuppressant drugs have not been evaluated for effectson detection. Results are for the identification of SARS-CoV-2 RNA usingreal-time (RT) polymerase chain reaction (PCR) technologyfor the qualitative detection of nucleic acids from ibrPQER-YtB-7 virus and diagnosis of SARS-CoV-2 virusinfection. It is an Emergency Use Authorization (EUA) testauthorized by the U.S. FDA. PROTHROMBIN [id number] 14:40:00* Test Item Value Reference Range Interpretation Comme nts PROTHROMBIN TIME PATIENT (test code = PTP) 21.8 SECONDS 9.3-12.9 H INTERNATIONAL NORMAL RATIO (test code = INR) 2.0 0.8-1.2 H TARGET INR BY INDICATION Indication INR1. Prophylaxis of venous thrombosis 2.0 - 3.0 (orthopedic surgery), Prophylaxis of venous thrombosis (other than high-risk surgery), Treatment of Deep Vein Thrombosis/Pulmonary Embolism, Prevention of systemic embolism - Tissue heart valves, Acute Myocardial Infarction (to prevent systemic embolism), Valvular heart disease, Atrial Fibrillation, Bileaflet mechanical valve in aortic position.2. Mechanical prosthetic valves (high risk), 2.5 - 3.5 Presence of Lupus Anticoagulant or Antiphospholipid Antibodies, Prevention of systemic embolism - Acute Myocardial Infarction (to prevent recurrent infarct). BASIC METABOLIC [id number] 14:34:00* Test Item Value Reference Range Interpretation Comme nts SODIUM (test code = NA) 143 mEq/L 134-147 N POTASSIUM (test code = K) 4.1 mEq/L 3.4-5.0 N CHLORIDE (test code = CL) 109 mEq/L 100-108 H CARBON DIOXIDE (test code = CO2) 27 mEq/l 21-33 N ANION GAP (test code = GAP) 11 0-20 N GLUCOSE (test code = GLU) 96 mg/dL 70-110 N BLOOD UREA NITROGEN (test code = BUN) 13 mg/dL 7-18 N GLOMERULAR FILTRATION RATE (test code = GFR) 78.3 95-105 L Units of measure = ml/min/1.73 m2 CREATININE (test code = CREAT) 0.8 mg/dL 0.6-1.3 N CALCIUM (test code = CA) 9.7 mg/dL 8.0-10.5 N CBC W/AUTO [id number] 14:21:00* Test Item Value Reference Range Interpretation Comme nts WHITE BLOOD CELL (test code = WBC) 7.2 x10 3/uL 4.5-11.0 N RED BLOOD CELL (test code = RBC) 5.16 x10 6/uL 3.54-5.02 H HEMOGLOBIN (test code = HGB) 16.1 g/dL 11.0-15.0 H HEMATOCRIT (test code = HCT) 49.3 % 33.0-45.0 H MEAN CELL VOLUME (test code = MCV) 95.5 fL 81.0-99.0 N MEAN CELL HGB (test code = MCH) 31.2 pg 27.0-33.0 N MEAN CELL HGB CONCETRATION (test code = MCHC) 32.7 g/dL 33.0-37.0 L RED CELL DISTRIBUTION WIDTH CV (test code = RDW) 12.5 % 11.5-14.5 N RED CELL DISTRIBUTION WIDTH SD (test code = RDW-SD) 44.0 fL 37.0-54.0 N PLATELET COUNT (test code = PLT) 192 x10 3/uL 150-400 N IMMATURE PLATELET FRACTION (test code = IPF) 12.8 % 0.9-11.2 H MEAN PLATELET VOLUME (test c ode = MPV) 13.0 fL 7.0-9.0 H NEUTROPHIL % (test code = NT%) 62.2 % 56.0-77.0 N IMMATURE GRANULOCYTE % (test code = IG%) 0.1 % 0.0-2.0 N LYMPHOCYTE % (test code = LY%) 26.3 % 14.0-32.0 N MONOCYTE % (test code = MO%) 8.5 % 4.8-9.0 N EOSINOPHIL % (test code = EO%) 2.2 % 0.3-3.7 N BASOPHIL % (test code = BA%) 0.7 % 0.0-2.0 N NUCLEATED RBC % (test code = NRBC%) 0.0 % 0-0 N NEUTROPHIL # (test code = NT#) 4.46 x10 3/uL 2.0-7.6 N IMMATURE GRANULOCYTE # (test code = IG#) 0.01 x10 3/uL 0.00-0.03 N LYMPHOCYTE # (test code = LY#) 1.89 x10 3/uL 1.0-3.8 N MONOCYTE # (test code = MO#) 0.61 x10 3/uL 0.1-0.8 N EOSINOPHIL # (test code = EO#) 0.16 x10 3/uL 0.0-0.2 N BASOPHIL # (test code = BA#) 0.05 x10 3/uL 0.0-0.2 N NUCLEATED RBC # (test code = NRBC#) 0.00 x10 3/uL 0.0-0.1 N MANUAL DIFF REQUIRED (test c ode = IFF) NO - XR CHEST 2 [id number] 00:00:00 [facility] 1975 Sex: F FAX: Zach Hankins [phone] [place]: St: PRE Name: JESSICA OLSEN [facility] : 1975 Age/S: 45/F[address] [facility] Unit #: [id number] Loc: [place] [address] Phys: Zach Wilson MD Acct: [id number] Dis Date: Status: PRE SDC PHONE #: [phone] Exam Date: 11/11/2021 1415 FAX #: [phone] Reason: PREOP EXAMS: CPT CODE: [id number] XR CHEST 2 V 97963 PROCEDURE INFORMATION: Exam: XR Chest Exam date and time: 11/11/2021 2:15 PM Age: 45 years old Clinical indication: Pre-operative exam; Respiratory screening exam; Additional info: Preop TECHNIQUE: Imaging protocol: XR ofthe chest. Views: 2 views. PA and Lateral COMPARISON: No relevant prior studies available. FINDINGS: Lungs: No consolidation. Pleural spaces: No pleural effusion. Heart/Mediastinum: Cardiomegaly with minimal central venous congestion. Bones/joints: No gross acute findings. IMPRESSION: Cardiomegalywith minimal central venous congestion. at 1524 Reported and signed by: Emil Patino D.O. CC: Zach Vanessa MD Technologist: RT Asher(Shauna) Trnscrd Date/Time/By: 11/11/2021 (1523) : By: [email or web address] Orig Print D/T: S: 11/11/2021 (1523) PAGE 1 Signed Report Notes Date/Time Note Provider Source 2021-11-17 07:26:00 [id number] w3f6vySm7LUPR5cF2wZ3JBcIXB4rlM2x6805-93-78S56:26: [id number] [place] [address] PATIENT NAME: JESSICA OLSEN ADMIT DATE: 11/16/21ACCOUNT NO: [id number] ROOM NO: [facility] AGE: 45 REPORT TYPE: eELECTROCARDIOGRAM REPORT SEX: F ADMITTING PHYSICIAN:Zach Wilson MD ATTENDING PHYSICIAN:Zach Wilson MD Order:[id number] Reason : AFLUTTER Test Date/Time Stamp:SunNov 17 2021 07:26:28Blood Pressure : / mmHGVent. Rate : 067 BPM Atrial Rate : 067 BPM P-R Int : 222 ms QRS Dur : 124 ms QT Int : 472 ms P-R-T Axes : 043 262 -03 degrees QTc Int : 498 ms Sinus rhythm with 1st degree AV blockLeft axis deviationRight bundle branch blockPoor r wave progression suggestive Anterior scar, COPD or lead placement errorPossible Lateral infarct (cited on or before 16-NOV-2021)Abnormal ECG Confirmed by ANNE MARIE WILKS MD ([id number]) on 11/17/2021 8:56:43 AM Referred By: Zach Vanessa Confirmed by:ANNE MARIE WILKS MD at 0856 PATIENT NAME: JESSICA OLSEN .[id number] AVAvailable for patient akccHGLURETEUKUCMX5531-19-06A39:57:04 [facility]ACL 2021-11-17 06:21:00 [id number] 3MnBTjhswdMIXyeL16iXT8clS2Yeq BLKS9lO++OlWal78/BvwqXRmV5etcNnm1424-68-97A73:21: 00 [facility] ([facility])EP Progress NoteREPORT#:[id number] REPORT STATUS: SignedDATE:11/17/21 TIME: 620 PATIENT: JESSICA OLSEN UNIT #: [id number]#: [id number] [address] [birth year] AGE: 45 SEX: F ATTEND: Zach Wilson [facility] AUTHOR: Luke Maxwell * ALL edits or amendments must be made on the electronic/computer document * Objective GeneralVS/I OLast Documented: Result Date Time Pulse Ox 95 11/17 0554 B/P 112/72 11/17 0554 B/P Mean 0.0 11/17 0554 O2 Delivery Room air 11/17 05 Temp 36.6 11/17 0554 Pulse 62 11/17 0554 Resp 18 11/17 0554 24 hour I O ending at 0700: 11/17 0700 11/16 1900 Intake Total Output Total Balance Number Voids 6 PATIENT WEIGHT: Weight (lb): 130Weight (oz): 1.16Weight (kg): 59.000 Medications:Active Meds + DC'd Last 24 HrsRivaroxaban (XARELTO 20MG) 20 MG BEDTIME PO Acetaminophen (TYLENOL) 650 MG Q4H PRN PRN PO Sotalol HCl (BETAPACE) 80 MG BID PO Atropine Sulfate (ATROPINE SULFATE 0.1MG/ML SYR) 0.5 MG ASDIR PRN IV (DC) Sodium Chloride (SODIUM CHLORIDE 0.9%) 500 ML ASDIR PRN IV (DC) Sodium Chloride (SODIUM CHLORIDE 0.9%) 500 ML ASDIR IV Sodium Chloride (SODIUM CHLORIDE 0.9%) 500 ML ASDIR IV Acetaminophen (TYLENOL EXTRA STRENGTH) 1,000 MG PREOP ONCALL PO (CKD) Gabapentin (NEURONTIN) 200 MG PREOP ONCALL PO (CKD) Lactated Ringer's (LACTATED RINGERS) 1,000 ML PREOP ONCALL IV Lidocaine HCl (LIDOCAINE HCL/PF) 2 ML PREOP ONCALL LOCAL Lidocaine HCl (LIDOCAINE HCL/PF) 2 ML PREOP ONCALL LOCAL Sodium Chloride (SODIUM CHLORIDE 0.9%) 500 ML PREOP ONCALL IV Sodium Chloride (SODIUM CHLORIDE 0.9%) 500 ML PREOP ONCALL IV Sodium Chloride (SODIUM CHLORIDE 0.9%) 1,000 ML PREOP ONCALL IV Sodium Chloride (SODIUM CHLORIDE) 5 ML ASDIR PRN IV Sodium Chloride (SODIUM CHLORIDE) 10 ML ASDIR PRN IV Sodium Chloride (SODIUM CHLORIDE 0.9%) 250 ML ASDIR PRN IV Physical ExamGeneral appearance: alert, awake, orientedCardiovascular: CV assessment: regular rate and rhythmRespiratory: clear to auscultation, no distressAbdomen: soft, non-tenderExtremities: moves allNeuro/CITY WELLNESS COORDINATOR: alert, oriented X 3Skin: dry Diagnosis, Assessment PlanFree Text A P:1. Aflutter-currently SR 60s-s/p CTI ablation -AA therapy, sotalol 80mg bid-AC xarelto-cardiac MRI as outpt-EKG daily; monitor QT-EKG 11/15, QT 480-EKG 11/16, QT 486-EKG 11/17, QT 472-d/c home; outpt f/u w/ in 2 weeks at 0957 at 1016 [facility] #:[id number] OF REPORTPRProgress vblp5026-62-09I74:21:00G.OEJU14901655-7139IQNsxps able for patient xpikAUXWSVIBDSMQNO1965-15-90R85:58:00 [facility] 2021-11-16 10:37:00 [id number] GfurYzCAkiJnDChyE3Vnkd9hQEd9d NI1K2EhqP5T+ml+BAW6w66o4EfNjKiXs9879-39-88N92:37: [id number] [place] [address] PATIENT NAME: JESSICA OLSEN ADMIT DATE: 11/15/21ACCOUNT NO: [id number] ROOM NO: G.5535 AGE: 45 REPORT TYPE: eELECTROCARDIOGRAM REPORT SEX: F ADMITTING PHYSICIAN:Zach Wilson MD ATTENDING PHYSICIAN:Zach Wilson MD Order:[id number] Reason : receiving sotalol Test Date/Time Stamp:SunNov 16 2021 10:37:56Blood Pressure : / mmHGVent. Rate : 061 BPM Atrial Rate : 061 BPM P-R Int : 266 ms QRS Dur : 130 ms QT Int : 486 ms P-R-T Axes : -09 -82 -23 degrees QTc Int : 489 ms Sinus rhythm with 1st degree AV blockRight bundle branch blockLeft anterior fascicular block Bifascicular block Possible Lateral infarct (cited on or before 16-NOV-2021)Possible Inferior infarct , age undeterminedAbnormal ECGConfirmed by ANNE MARIE WILKS MD ([id number]) on 11/16/2021 12:01:12 PM Referred By: Zach Vanessa Confirmed by:ANNE MARIE WILKS MD at 1201 PATIENT NAME: JESSICA OLSEN .[id number] AVAvailable for patient bxdlWQXIKTDPQKVBKA7470-64-27O13:01:37 [facility] 2021-11-16 08:24:00 [id number] 3Qm2bo2bDVA4DZ2Uz5nfOhbWBh8EV uhdziTEeWrRwNMosN7T5txvnez2Kffk23869-98-03F26:24: 00 [facility] ([facility])EP Progress NoteREPORT#:[id number] REPORT STATUS: SignedDATE:11/16/21 TIME: 823 PATIENT: JESSICA OLSEN UNIT #: [id number]#: [id number] [address] [birth year] AGE: 45 SEX: F ATTEND: Zach Wilson [facility] AUTHOR: Luke Maxwell * ALL edits or amendments must be made on the electronic/computer document * Objective GeneralVS/I OLast Documented: Result Date Time Pulse Ox 96 11/16 0514 B/P 109/75 11/16 0514 B/P Mean 86.1 11/16 0514 Temp 36.4 11/16 0514 Pulse 64 11/16 0514 Resp 14 11/16 0514 O2 Delivery Room air 11/15 1726 24 hour I O ending at 0700: 11/16 0700 11/15 1900 Intake Total Output Total Balance Number Voids 2 PATIENT WEIGHT: Weight (lb): 130Weight (oz): 1.16Weight (kg): 59.000 Medications:Active Meds + DC'd Last 24 HrsRivaroxaban (XARELTO 20MG) 20 MG BEDTIME PO Acetaminophen (TYLENOL) 650 MG Q4H PRN PRN PO Sotalol HCl (BETAPACE) 80 MG BID PO Fentanyl Citrate (SUBLIMAZE) 0 .STK-MED ONE .ROUTE (DC) Glycopyrrolate (GLYCOPYRROLATE) 0 .STK-MED ONE .ROUTE (DC) Neostigmine Methylsulfate (PROSTIGMIN) 0 .STK-MED ONE .ROUTE (DC) Protamine Sulfate (PROTAMINE SULFATE) 0 .STK-MED ONE IV (DC) Atropine Sulfate (ATROPINE SULFATE 0.1MG/ML SYR) 0.5 MG ASDIR PRN IV Sodium Chloride (SODIUM CHLORIDE 0.9%) 500 ML ASDIR PRN IV Fentanyl Citrate (SUBLIMAZE) 100 MCG PACU Q10MIN PRN PRN IV (DC) Fentanyl Citrate (SUBLIMAZE) 50 MCG PACU Q10MIN PRN PRN IV (DC) Hydralazine HCl (APRESOLINE) 2 MG PACU Q10MIN PRN PRN IV (DC) Hydrocodone Bitart/Acetaminophen (NORCO 5/325) 1 TAB PACU ONCE PO (DC) Hydromorphone HCl (DILAUDID) 1 MG PACU Q10MIN PRN PRN IV (DC) Hydromorphone HCl (DILAUDID) 0.5 MG PACU Q5MIN PRN PRN IV (DC) Insulin Human Lispro (HUMALOG) 0 PACU ONCE PRN SUBQ (DC) Labetalol HCl (LABETALOL HCL) 5 MG PACU Q10MIN PRN PRN IV (DC) Meperidine HCl (DEMEROL 50MG/ML) 12.5 MG PACU ONCE PRN IV (DC) Morphine Sulfate (morphine SULFATE) 2 MG PACU Q10MIN PRN PRN IV (DC) Ondansetron HCl (ZOFRAN) 4 MG PACU ONCE PRN IV (DC) Promethazine HCl (PHENERGAN) 25 MG PACU ONCE PRN PO (DC) Sodium Chloride (SODIUM CHLORIDE 0.9%) 1,000 ML .Q24H IV (DC) Tramadol HCl (ULTRAM) 50 MG PACU ONCE PO (DC) Sodium Chloride (SODIUM CHLORIDE 0.9%) 500 ML ASDIR IV Sodium Chloride (SODIUM CHLORIDE 0.9%) 500 ML ASDIR IV Acetaminophen (TYLENOL EXTRA STRENGTH) 1,000 MG PREOP ONCALL PO (CKD) Gabapentin (NEURONTIN) 200 MG PREOP ONCALL PO (CKD) Lactated Ringer's (LACTATED RINGERS) 1,000 ML PREOP ONCALL IV Lidocaine HCl (LIDOCAINE HCL/PF) 2 ML PREOP ONCALL LOCAL Lidocaine HCl (LIDOCAINE HCL/PF) 2 ML PREOP ONCALL LOCAL Sodium Chloride (SODIUM CHLORIDE 0.9%) 500 ML PREOP ONCALL IV Sodium Chloride (SODIUM CHLORIDE 0.9%) 500 ML PREOP ONCALL IV Sodium Chloride (SODIUM CHLORIDE 0.9%) 1,000 ML PREOP ONCALL IV Sodium Chloride (SODIUM CHLORIDE) 5 ML ASDIR PRN IV Sodium Chloride (SODIUM CHLORIDE) 10 ML ASDIR PRN IV Sodium Chloride (SODIUM CHLORIDE 0.9%) 250 ML ASDIR PRN IV Physical ExamGeneral appearance: alert, awake, orientedCardiovascular: CV assessment: regular rate and rhythmRespiratory: clear to auscultation, no distressAbdomen: soft, non-tenderExtremities: moves allNeuro/CITY WELLNESS COORDINATOR: alert, oriented X 3Skin: dryFindings/Data:Laboratory Tests: 11/15 11/15 0917 0837 Coagulation Activated Coag Time (74 - 137 SEC) 318 H 347 H Diagnosis, Assessment PlanFree Text A P:1. Aflutter-currently SR 70s-s/p CTI ablation -AA therapy, sotalol 80mg bid-AC xarelto-cardiac MRI pending-EKG daily; monitor QT-EKG 11/15, QT 480-EKG 11/16, QT 486 at 1337 RPT #:[id number] OF REPORTPRProgress pqsu2890-00-37X68:24:00G.FNIE15680570-2869AUYavpb able for patient qydfUWRKGESKYQKOWX6322-29-17N89:38:02 [facility] 2021-11-16 08:24:00 [id number] 5Snrs9UUOZzgvGGB3BJgoWkinfQ6q 2+YXD8TfyURCuohB8NybDlYQorZrzlX/4822-36-46H86:24: 00 [facility] ([facility])EP Progress NoteREPORT#:[id number] REPORT STATUS: SignedDATE:11/16/21 TIME: 823 PATIENT: JESSICA OLSEN UNIT #: [id number]#: [id number] ROOM/BED: 5535-1DOB: [birth year] AGE: 45 SEX: F ATTEND: Zach Wilson AUTHOR: Luke Maxwell * ALL edits or amendments must be made on the electronic/computer document * Objective GeneralVS/I OLast Documented: Result Date Time Pulse Ox 96 11/16 513 B/P 109/75 11/16 513 B/P Mean 86.1 11/16 513 Temp 36.4 11/16 513 Pulse 64 11/16 513 Resp 14 11/16 513 O2 Delivery Room air 11/15 1726 24 hour I O ending at 0700: 11/16 0700 11/15 1900 Intake Total Output Total Balance Number Voids 2 PATIENT WEIGHT: Weight (lb): 130Weight (oz): 1.16Weight (kg): 59.000 Medications:Active Meds + DC'd Last 24 HrsRivaroxaban (XARELTO 20MG) 20 MG BEDTIME PO Acetaminophen (TYLENOL) 650 MG Q4H PRN PRN PO Sotalol HCl (BETAPACE) 80 MG BID PO Fentanyl Citrate (SUBLIMAZE) 0 .STK-MED ONE .ROUTE (DC) Glycopyrrolate (GLYCOPYRROLATE) 0 .STK-MED ONE .ROUTE (DC) Neostigmine Methylsulfate (PROSTIGMIN) 0 .STK-MED ONE .ROUTE (DC) Protamine Sulfate (PROTAMINE SULFATE) 0 .STK-MED ONE IV (DC) Atropine Sulfate (ATROPINE SULFATE 0.1MG/ML SYR) 0.5 MG ASDIR PRN IV Sodium Chloride (SODIUM CHLORIDE 0.9%) 500 ML ASDIR PRN IV Fentanyl Citrate (SUBLIMAZE) 100 MCG PACU Q10MIN PRN PRN IV (DC) Fentanyl Citrate (SUBLIMAZE) 50 MCG PACU Q10MIN PRN PRN IV (DC) Hydralazine HCl (APRESOLINE) 2 MG PACU Q10MIN PRN PRN IV (DC) Hydrocodone Bitart/Acetaminophen (NORCO 5/325) 1 TAB PACU ONCE PO (DC) Hydromorphone HCl (DILAUDID) 1 MG PACU Q10MIN PRN PRN IV (DC) Hydromorphone HCl (DILAUDID) 0.5 MG PACU Q5MIN PRN PRN IV (DC) Insulin Human Lispro (HUMALOG) 0 PACU ONCE PRN SUBQ (DC) Labetalol HCl (LABETALOL HCL) 5 MG PACU Q10MIN PRN PRN IV (DC) Meperidine HCl (DEMEROL 50MG/ML) 12.5 MG PACU ONCE PRN IV (DC) Morphine Sulfate (morphine SULFATE) 2 MG PACU Q10MIN PRN PRN IV (DC) Ondansetron HCl (ZOFRAN) 4 MG PACU ONCE PRN IV (DC) Promethazine HCl (PHENERGAN) 25 MG PACU ONCE PRN PO (DC) Sodium Chloride (SODIUM CHLORIDE 0.9%) 1,000 ML .Q24H IV (DC) Tramadol HCl (ULTRAM) 50 MG PACU ONCE PO (DC) Sodium Chloride (SODIUM CHLORIDE 0.9%) 500 ML ASDIR IV Sodium Chloride (SODIUM CHLORIDE 0.9%) 500 ML ASDIR IV Acetaminophen (TYLENOL EXTRA STRENGTH) 1,000 MG PREOP ONCALL PO (CKD) Gabapentin (NEURONTIN) 200 MG PREOP ONCALL PO (CKD) Lactated Ringer's (LACTATED RINGERS) 1,000 ML PREOP ONCALL IV Lidocaine HCl (LIDOCAINE HCL/PF) 2 ML PREOP ONCALL LOCAL Lidocaine HCl (LIDOCAINE HCL/PF) 2 ML PREOP ONCALL LOCAL Sodium Chloride (SODIUM CHLORIDE 0.9%) 500 ML PREOP ONCALL IV Sodium Chloride (SODIUM CHLORIDE 0.9%) 500 ML PREOP ONCALL IV Sodium Chloride (SODIUM CHLORIDE 0.9%) 1,000 ML PREOP ONCALL IV Sodium Chloride (SODIUM CHLORIDE) 5 ML ASDIR PRN IV Sodium Chloride (SODIUM CHLORIDE) 10 ML ASDIR PRN IV Sodium Chloride (SODIUM CHLORIDE 0.9%) 250 ML ASDIR PRN IV Physical ExamGeneral appearance: alert, awake, orientedCardiovascular: CV assessment: regular rate and rhythmRespiratory: clear to auscultation, no distressAbdomen: soft, non-tenderExtremities: moves allNeuro/[employer] WELLNESS COORDINATOR: alert, oriented X 3Skin: dryFindings/Data:Laboratory Tests: 11/15 11/15 0917 0837 Coagulation Activated Coag Time (74 - 137 SEC) 318 H 347 H Diagnosis, Assessment PlanFree Text A P:1. Aflutter-currently SR 70s-s/p CTI ablation -AA therapy, sotalol 80mg bid-AC xarelto-cardiac MRI pending-EKG daily; monitor QT-EKG 11/15, QT 480-EKG 11/16, QT 486 at 1337 at 1016 [facility] [facility] #:[id number] OF REPORTPRProgress ztxg2828-62-78U71:24:00G.[id number] able for patient bgpbQLTXAMTTGLTXTN0106-55-40N47:16:44 HCACL 2021-11-15 17:00:00 [id number] p8rxp4XDZXfJzQeg4+ieHpqVR83NQ 8mO4ZDnSxvt4sVgv1RujrEGxdyU+H6MR0755-62-46Q96:00: [id number] [place] [address] PATIENT NAME: JESSICA OLSEN ADMIT DATE: 11/15/21ACCOUNT NO: [id number] ROOM NO: [facility] [place] AGE: 45 REPORT TYPE: eELECTROCARDIOGRAM REPORT SEX: F ADMITTING PHYSICIAN:Zach Wilson MD ATTENDING PHYSICIAN:Zach Wilson MD Order:[id number] Reason : STARTED SOTALOL Test Date/Time Stamp:SunNov 15 2021 17:00:36Blood Pressure : / mmHGVent. Rate : 127 BPM Atrial Rate : 129 BPM P-R Int : 344 ms QRS Dur : 122 ms QT Int : 374 ms P-R-T Axes : 000 -72 -43 degrees QTc Int : 543 ms A. flutter (atypical)Incomplete right bundle branch blockLeft anterior fascicular block Bifascicular block Poor R wave progression in chest leadsNonspecific ST and T wave abnormalityAbnormal ECG Confirmed by ANNE MARIE WILKS MD ([id number]) on 11/15/2021 6:06:50 PM Referred By: Zach Vanessa Confirmed by:ANNE MARIE WILKS MD at 1806 PATIENT NAME: JESSICA OLSEN .[id number] AVAvailable for patient usxhNRNGHLEDUXORFN7852-46-87O60:07:08 HCACL 2021-11-15 12:30:00 [id number] vUk/0xq7gSXBxrCFJoV9+uc5o1Wrk udyatv0Lx3xVjxz4HA57z9yWXaE1MsqY2771-15-49N22:30: 00 [facility] ([facility])EP Progress NoteREPORT#:[id number] REPORT STATUS: SignedDATE:11/15/21 TIME: 1230 PATIENT: JESSICA OLSEN UNIT #: [id number]#: [id number] [address] AGE: 45 SEX: F ATTEND: Zach Wilson [facility] AUTHOR: Luke Maxwell * ALL edits or amendments must be made on the electronic/computer document * Objective GeneralVS/I OLast Documented: Result Date Time Pulse Ox 100 11/16 627 B/P 109/80 11/16 627 O2 Delivery Room air 11/16 627 Temp 35.9 11/16 627 Pulse 126 11/16 627 Resp 18 11/16 627 PATIENT WEIGHT: Weight (lb): 130Weight (oz): 1.16Weight (kg): 59.000 Medications:Active Meds + DC'd Last 24 HrsRivaroxaban (XARELTO 20MG) 20 MG BEDTIME PO (PEND) Sotalol HCl (BETAPACE) 80 MG BID PO Fentanyl Citrate (SUBLIMAZE) 0 .STK-MED ONE .ROUTE (DC) Glycopyrrolate (GLYCOPYRROLATE) 0 .STK-MED ONE .ROUTE (DC) Neostigmine Methylsulfate (PROSTIGMIN) 0 .STK-MED ONE .ROUTE (DC) Protamine Sulfate (PROTAMINE SULFATE) 0 .STK-MED ONE IV (DC) Atropine Sulfate (ATROPINE SULFATE 0.1MG/ML SYR) 0.5 MG ASDIR PRN IV Sodium Chloride (SODIUM CHLORIDE 0.9%) 500 ML ASDIR PRN IV Fentanyl Citrate (SUBLIMAZE) 100 MCG PACU Q10MIN PRN PRN IV Fentanyl Citrate (SUBLIMAZE) 50 MCG PACU Q10MIN PRN PRN IV Hydralazine HCl (APRESOLINE) 2 MG PACU Q10MIN PRN PRN IV Hydrocodone Bitart/Acetaminophen (NORCO 5/325) 1 TAB PACU ONCE PO (CKD) Hydromorphone HCl (DILAUDID) 1 MG PACU Q10MIN PRN PRN IV Hydromorphone HCl (DILAUDID) 0.5 MG PACU Q5MIN PRN PRN IV Insulin Human Lispro (HUMALOG) 0 PACU ONCE PRN SUBQ Labetalol HCl (LABETALOL HCL) 5 MG PACU Q10MIN PRN PRN IV Meperidine HCl (DEMEROL 50MG/ML) 12.5 MG PACU ONCE PRN IV Morphine Sulfate (morphine SULFATE) 2 MG PACU Q10MIN PRN PRN IV Ondansetron HCl (ZOFRAN) 4 MG PACU ONCE PRN IV Promethazine HCl (PHENERGAN) 25 MG PACU ONCE PRN PO Sodium Chloride (SODIUM CHLORIDE 0.9%) 1,000 ML .Q24H IV Tramadol HCl (ULTRAM) 50 MG PACU ONCE PO (CKD) Heparin Sodium/Sodium Chloride (HEPARIN 2,000 UNITS/NS 1,000mL) 1,000 ML .STK-MED ONE IV (DC) Heparin Sodium (HEPARIN SODIUM) 0 .STK-MED ONE .ROUTE (DC) Sodium Chloride (SODIUM CHLORIDE 0.9%) 500 ML .STK-MED ONE IV (DC) Heparin Sodium (HEPARIN SODIUM) 0 .STK-MED ONE .ROUTE (DC) Phenylephrine HCl (RERE-SYNEPHRINE 10MG/ML AMP) 0 .STK-MED ONE .ROUTE (DC) Sodium Chloride (SODIUM CHLORIDE 0.9%) 250 ML .STK-MED ONE IV (DC) Bupivacaine HCl (MARCAINE 0.5%) 0 .STK-MED ONE .ROUTE (DC) Heparin Sodium (HEPARIN SODIUM) 0 .STK-MED ONE .ROUTE (DC) Heparin Sodium/Sodium Chloride (HEPARIN 2,000 UNITS/NS 1,000mL) 4,000 ML .STK-MED ONE IV (DC) Dexamethasone Sodium Phosphate (DECADRON) 0 .STK-MED ONE .ROUTE (DC) Lidocaine HCl (XYLOCAINE) 0 .STK-MED ONE .ROUTE (DC) Ondansetron HCl (ZOFRAN) 0 .STK-MED ONE .ROUTE (DC) Propofol (DIPRIVAN 200MG/20ML INJECTION) 20 ML .STK-MED ONE IV (DC) Rocuronium [place] (ZEMURON) 0 .STK-MED ONE IV (DC) Fentanyl Citrate (SUBLIMAZE) 0 .STK-MED ONE .ROUTE (DC) Midazolam HCl (VERSED) 0 .STK-MED ONE .ROUTE (DC) Lidocaine HCl (XYLOCAINE) 0 .STK-MED ONE .ROUTE (DC) Atropine Sulfate (ATROPINE SULFATE) 0.4 MG ONCE ONE IM (DC) Benzocaine/Butamben/Tetracaine HCl (CETACAINE) 1 APPLIC ONCE ONE MM (DC) Fentanyl Citrate (SUBLIMAZE) 100 MCG ONCE ONE IV (DC) Flumazenil (ROMAZICON) 0.5 MG ONCE ONE IV (DC) Midazolam HCl (VERSED) 5 MG ONCE ONE IV (DC) Sodium Chloride (SODIUM CHLORIDE 0.9%) 500 ML ASDIR IV Atropine Sulfate (ATROPINE SULFATE) 0.4 MG ONCE ONE IM (DC) Benzocaine/Butamben/Tetracaine HCl (CETACAINE) 1 APPLIC ONCE ONE MM (DC) Fentanyl Citrate (SUBLIMAZE) 100 MCG ONCE ONE IV (DC) Flumazenil (ROMAZICON) 0.5 MG ONCE ONE IV (DC) Midazolam HCl (VERSED) 5 MG ONCE ONE IV (DC) Sodium Chloride (SODIUM CHLORIDE 0.9%) 500 ML ASDIR IV Acetaminophen (TYLENOL EXTRA STRENGTH) 1,000 MG PREOP ONCALL PO (CKD) Gabapentin (NEURONTIN) 200 MG PREOP ONCALL PO (CKD) Lactated Ringer's (LACTATED RINGERS) 1,000 ML PREOP ONCALL IV Lidocaine HCl (LIDOCAINE HCL/PF) 2 ML PREOP ONCALL LOCAL Lidocaine HCl (LIDOCAINE HCL/PF) 2 ML PREOP ONCALL LOCAL Sodium Chloride (SODIUM CHLORIDE 0.9%) 500 ML PREOP ONCALL IV Sodium Chloride (SODIUM CHLORIDE 0.9%) 500 ML PREOP ONCALL IV Sodium Chloride (SODIUM CHLORIDE 0.9%) 1,000 ML PREOP ONCALL IV Sodium Chloride (SODIUM CHLORIDE) 5 ML ASDIR PRN IV Sodium Chloride (SODIUM CHLORIDE) 10 ML ASDIR PRN IV Sodium Chloride (SODIUM CHLORIDE 0.9%) 250 ML ASDIR PRN IV Physical ExamGeneral appearance: alert, awake, orientedCardiovascular: CV assessment: regular rate and rhythmRespiratory: clear to auscultation, no distressAbdomen: soft, non-tenderExtremities: moves allNeuro/CITY WELLNESS COORDINATOR: alert, oriented X 3Skin: dryWound/incision: Location:groin soft; no hematomaFindings/Data:Laboratory Tests: 11/15 11/15 11/15 11/15 11/15 0917 0837 0820 0808 0732Blood Gas O2 Saturation (90 - 100 %) 99.3 ABG pH (7.35 - 7.45) 7.385 ABG pCO2 (35.0 - 45 mmHg) 35.2 ABG pO2 (80 - 100.0 mmHg) 147.2 H ABG HCO3 (22.0 - 26.0 MMOL/L) 21.0 L ABG Total CO2 22.1 ABG Base Excess (-4.0 - 4.0 -3.4MMOL/L) ABG Hematocrit (33.0 - 45.0 %) 40 ABG Hemoglobin (11.0 - 15.0 13.7G/DL) Sodium (134 - 147 MEQ/L) 143 Potassium (3.4 - 5.0 MEQ/L) 3.8 Chloride (100 - 108 MEQ/L) 110 H Ionized Calcium (1.12 - 1.32 1.14MMOL/L) Lactic Acid (0.9 - 1.7 mmol/l) 0.9Chemistry POC Creatinine (0.6 - 1.0 mg/dL) 0.5 L POC Glucose (mg/dL) (MG/DL) 105 Serum , Qual (NEGATIVE) SERUM NEGATIVECoagulation Activated Coag Time (74 - 137 318 H 347 H 335 HSEC) Diagnosis, Assessment PlanFree Text A P:1. Aflutter-currently SR 70s-s/p CTI ablation per -hemodynamically stable-groin soft; no hematoma-resume AC xarelto-start sotalol 80mg bid-cardiac MRI-EKG daily; monitor QT at 1319 RPT #:[id number] OF REPORTPRProgress ytvo4130-59-10H10:30:00G.EBOZ45705911-6693PPKhleg able for patient faguLQHRTULAHTRCGP7656-06-22L67:20:07 HCACL 2021-11-15 12:30:00 [id number] D9L7Q3lR5lkE6cRUv9dPGLo0Tr0MC Ykzfb4wRR47eTdbzvCgldaNk9oTBUoVy7018-74-46N60:30: 00 [facility] ([facility])EP Progress NoteREPORT#:[id number] REPORT STATUS: SignedDATE:11/15/21 TIME: 1230 PATIENT: JESSICA OLSEN UNIT #: [id number]#: [id number] [address] AGE: 45 SEX: F ATTEND: Zach Wilson [facility] AUTHOR: Luke Maxwell * ALL edits or amendments must be made on the electronic/computer document * Objective GeneralVS/I OLast Documented: Result Date Time Pulse Ox 100 11/16 627 B/P 109/80 11/16 627 O2 Delivery Room air 11/16 627 Temp 35.9 11/16 627 Pulse 126 11/16 627 Resp 18 11/16 627 PATIENT WEIGHT: Weight (lb): 130Weight (oz): 1.16Weight (kg): 59.000 Medications:Active Meds + DC'd Last 24 HrsRivaroxaban (XARELTO 20MG) 20 MG BEDTIME PO (PEND) Sotalol HCl (BETAPACE) 80 MG BID PO Fentanyl Citrate (SUBLIMAZE) 0 .STK-MED ONE .ROUTE (DC) Glycopyrrolate (GLYCOPYRROLATE) 0 .STK-MED ONE .ROUTE (DC) Neostigmine Methylsulfate (PROSTIGMIN) 0 .STK-MED ONE .ROUTE (DC) Protamine Sulfate (PROTAMINE SULFATE) 0 .STK-MED ONE IV (DC) Atropine Sulfate (ATROPINE SULFATE 0.1MG/ML SYR) 0.5 MG ASDIR PRN IV Sodium Chloride (SODIUM CHLORIDE 0.9%) 500 ML ASDIR PRN IV Fentanyl Citrate (SUBLIMAZE) 100 MCG PACU Q10MIN PRN PRN IV Fentanyl Citrate (SUBLIMAZE) 50 MCG PACU Q10MIN PRN PRN IV Hydralazine HCl (APRESOLINE) 2 MG PACU Q10MIN PRN PRN IV Hydrocodone Bitart/Acetaminophen (NORCO 5/325) 1 TAB PACU ONCE PO (CKD) Hydromorphone HCl (DILAUDID) 1 MG PACU Q10MIN PRN PRN IV Hydromorphone HCl (DILAUDID) 0.5 MG PACU Q5MIN PRN PRN IV Insulin Human Lispro (HUMALOG) 0 PACU ONCE PRN SUBQ Labetalol HCl (LABETALOL HCL) 5 MG PACU Q10MIN PRN PRN IV Meperidine HCl (DEMEROL 50MG/ML) 12.5 MG PACU ONCE PRN IV Morphine Sulfate (morphine SULFATE) 2 MG PACU Q10MIN PRN PRN IV Ondansetron HCl (ZOFRAN) 4 MG PACU ONCE PRN IV Promethazine HCl (PHENERGAN) 25 MG PACU ONCE PRN PO Sodium Chloride (SODIUM CHLORIDE 0.9%) 1,000 ML .Q24H IV Tramadol HCl (ULTRAM) 50 MG PACU ONCE PO (CKD) Heparin Sodium/Sodium Chloride (HEPARIN 2,000 UNITS/NS 1,000mL) 1,000 ML .STK-MED ONE IV (DC) Heparin Sodium (HEPARIN SODIUM) 0 .STK-MED ONE .ROUTE (DC) Sodium Chloride (SODIUM CHLORIDE 0.9%) 500 ML .STK-MED ONE IV (DC) Heparin Sodium (HEPARIN SODIUM) 0 .STK-MED ONE .ROUTE (DC) Phenylephrine HCl (RERE-SYNEPHRINE 10MG/ML AMP) 0 .STK-MED ONE .ROUTE (DC) Sodium Chloride (SODIUM CHLORIDE 0.9%) 250 ML .STK-MED ONE IV (DC) Bupivacaine HCl (MARCAINE 0.5%) 0 .STK-MED ONE .ROUTE (DC) Heparin Sodium (HEPARIN SODIUM) 0 .STK-MED ONE .ROUTE (DC) Heparin Sodium/Sodium Chloride (HEPARIN 2,000 UNITS/NS 1,000mL) 4,000 ML .STK-MED ONE IV (DC) Dexamethasone Sodium Phosphate (DECADRON) 0 .STK-MED ONE .ROUTE (DC) Lidocaine HCl (XYLOCAINE) 0 .STK-MED ONE .ROUTE (DC) Ondansetron HCl (ZOFRAN) 0 .STK-MED ONE .ROUTE (DC) Propofol (DIPRIVAN 200MG/20ML INJECTION) 20 ML .STK-MED ONE IV (DC) Rocuronium [place] (ZEMURON) 0 .STK-MED ONE IV (DC) Fentanyl Citrate (SUBLIMAZE) 0 .STK-MED ONE .ROUTE (DC) Midazolam HCl (VERSED) 0 .STK-MED ONE .ROUTE (DC) Lidocaine HCl (XYLOCAINE) 0 .STK-MED ONE .ROUTE (DC) Atropine Sulfate (ATROPINE SULFATE) 0.4 MG ONCE ONE IM (DC) Benzocaine/Butamben/Tetracaine HCl (CETACAINE) 1 APPLIC ONCE ONE MM (DC) Fentanyl Citrate (SUBLIMAZE) 100 MCG ONCE ONE IV (DC) Flumazenil (ROMAZICON) 0.5 MG ONCE ONE IV (DC) Midazolam HCl (VERSED) 5 MG ONCE ONE IV (DC) Sodium Chloride (SODIUM CHLORIDE 0.9%) 500 ML ASDIR IV Atropine Sulfate (ATROPINE SULFATE) 0.4 MG ONCE ONE IM (DC) Benzocaine/Butamben/Tetracaine HCl (CETACAINE) 1 APPLIC ONCE ONE MM (DC) Fentanyl Citrate (SUBLIMAZE) 100 MCG ONCE ONE IV (DC) Flumazenil (ROMAZICON) 0.5 MG ONCE ONE IV (DC) Midazolam HCl (VERSED) 5 MG ONCE ONE IV (DC) Sodium Chloride (SODIUM CHLORIDE 0.9%) 500 ML ASDIR IV Acetaminophen (TYLENOL EXTRA STRENGTH) 1,000 MG PREOP ONCALL PO (CKD) Gabapentin (NEURONTIN) 200 MG PREOP ONCALL PO (CKD) Lactated Ringer's (LACTATED RINGERS) 1,000 ML PREOP ONCALL IV Lidocaine HCl (LIDOCAINE HCL/PF) 2 ML PREOP ONCALL LOCAL Lidocaine HCl (LIDOCAINE HCL/PF) 2 ML PREOP ONCALL LOCAL Sodium Chloride (SODIUM CHLORIDE 0.9%) 500 ML PREOP ONCALL IV Sodium Chloride (SODIUM CHLORIDE 0.9%) 500 ML PREOP ONCALL IV Sodium Chloride (SODIUM CHLORIDE 0.9%) 1,000 ML PREOP ONCALL IV Sodium Chloride (SODIUM CHLORIDE) 5 ML ASDIR PRN IV Sodium Chloride (SODIUM CHLORIDE) 10 ML ASDIR PRN IV Sodium Chloride (SODIUM CHLORIDE 0.9%) 250 ML ASDIR PRN IV Physical ExamGeneral appearance: alert, awake, orientedCardiovascular: CV assessment: regular rate and rhythmRespiratory: clear to auscultation, no distressAbdomen: soft, non-tenderExtremities: moves allNeuro/CITY WELLNESS COORDINATOR: alert, oriented X 3Skin: dryWound/incision: Location:groin soft; no hematomaFindings/Data:Laboratory Tests: 11/15 11/15 11/15 11/15 11/15 0917 0837 0820 0808 0732Blood Gas O2 Saturation (90 - 100 %) 99.3 ABG pH (7.35 - 7.45) 7.385 ABG pCO2 (35.0 - 45 mmHg) 35.2 ABG pO2 (80 - 100.0 mmHg) 147.2 H ABG HCO3 (22.0 - 26.0 MMOL/L) 21.0 L ABG Total CO2 22.1 ABG Base Excess (-4.0 - 4.0 -3.4MMOL/L) ABG Hematocrit (33.0 - 45.0 %) 40 ABG Hemoglobin (11.0 - 15.0 13.7G/DL) Sodium (134 - 147 MEQ/L) 143 Potassium (3.4 - 5.0 MEQ/L) 3.8 Chloride (100 - 108 MEQ/L) 110 H Ionized Calcium (1.12 - 1.32 1.14MMOL/L) Lactic Acid (0.9 - 1.7 mmol/l) 0.9Chemistry POC Creatinine (0.6 - 1.0 mg/dL) 0.5 L POC Glucose (mg/dL) (MG/DL) 105 Serum , Qual (NEGATIVE) SERUM NEGATIVECoagulation Activated Coag Time (74 - 137 318 H 347 H 335 HSEC) Diagnosis, Assessment PlanFree Text A P:1. Aflutter-currently SR 70s-s/p CTI ablation per -hemodynamically stable-groin soft; no hematoma-resume AC xarelto-start sotalol 80mg bid-cardiac MRI-EKG daily; monitor QT at 1319 at 1016 [facility] #:[id number] OF REPORTPRProgress jxzf6542-90-44P89:30:00G.[id number] able for patient flmzJOPZFVSITHOGIN7510-38-17Z48:17:04 [facility] 2021-11-15 11:39:00 [id number] oMRY9xjakV1eCBp2k1OCg0UoECnHv CsxIh7hBAhl/bQmqAYPl/vKudFrCIplT4999-28-12D05:39: [id number] [place] [address] PATIENT NAME: JESSICA OLSEN ADMIT DATE: 11/16/21ACCOUNT NO: [id number] ROOM NO: [facility] [place] AGE: 45 REPORT TYPE: OPERATIVE REPORT SEX: F ADMITTING PHYSICIAN:Zach Wilson MD ATTENDING PHYSICIAN:Zach Wilson MD OPERATION DATE: 11/15/2021 PREOPERATIVE DIAGNOSES:1. Persistent atrial fibrillation.2. Atypical atrial flutter.3. Palpitations. POSTOPERATIVE DIAGNOSES:1. Persistent atrial fibrillation.2. Atypical atrial flutter.3. Palpitations. PROCEDURES:1. Comprehensive electrophysiology study with induction.2. Coronary sinus pacing and recording of the left atrium.3. A 3D mapping of SVT.4. Ablation of SVT, atrial flutter.5. Intracardiac echocardiogram. ATTENDING PHYSICIAN: Zach Vanessa MD. SURGEON: Zach Vanessa MD. ANESTHESIA: General. ESTIMATED BLOOD LOSS: 10 mL. PROCEDURE IN DETAIL: After informed consent was obtained, the patient wasbrought to the electrophysiology laboratory in a fasting nonsedated state. Areaover her groin was prepped and draped in usual sterile fashion. Generalanesthesia was started. Vascular access was obtained x3 in the right commonfemoral vein using modified Seldinger technique under vascular ultrasoundguidance. Three sheaths were placed. Decapolar catheter into the coronarysinus for pacing and recording. Heparin was given to maintain ACT greater levl120. We then advanced an intracardiac echocardiogram to the right atrium. The patient was in atrial flutter, so we went ahead and performed a 3D map ofthe atrial flutter in the right atrium. Using [employer] system, we identifiedthe flutter was going around cavotricuspid isthmus. The anatomy was very distorted due to history of ASD repair, VSD repair and PATIENT NAME: JESSICA OLSEN severe enlargement of right atrium. We then performed radiofrequency ablation at the area of the CTI. However, theatrial flutter changed into a different atrial flutter. We then performed mapping, this time was seen more lateral side of the rightatrium. We performed ablation there and the atrial flutter changed to differentwobbling atrial flutters. At this time, we consider there was no benefit onperforming more ablations as these atrial flutters were interchanging fromdifferent locations and multisites, so we performed cardioversion into sinusrhythm and due to all these flutters were originating from the right atrium, wedid not consider any benefit on performing transseptal or PVI at this time.Catheters were removed from the body. Heparin was reversed with protamine. Weused Vascade to the right groin. The patient tolerated the procedure well. Procedure was complete. IMPRESSION:1. Atrial flutter on presentation.2. Ablation of two different right-sided atrial flutters with constant shiftingin the activation and wobbling consistent with multifocal atrial fluttersoriginating from the severely enlarged right atrium.3. No transseptal, no pulmonary vein isolation was performed.4. Cardioversion to sinus at the end of the study.5. No complications. PLAN:1. Routine postoperative monitoring on telemetry.2. Admit for inpatient observation.3. We will go ahead and start sotalol 180 mg every 12 hours.4. We will obtain a cardiac MRI.5. Follow up in 1 to 2 weeks. Dictated By: Zach Vanessa MD WT: OP:ANTONIO/MARZENA.01/NTSDD: 11/15/2021 11:39:45DT: 11/15/2021 15:04:59Conf#: [id number]/DID#: [id number] Authenticated and Edited by Zach Vanessa MD On 11/29/21 10:56:22 AM at 1112 PATIENT NAME: JESSICA OLSEN sbbaxe7213-63-56U55:04:00G.[id number] lable for patient ressRGVGKCQYPNPVBM0403-10-06Y05:13:17 [facility] 2021-11-15 10:47:00 [id number] MGBINeIZDWT/qco1cFCXhAolO6GZI pJp3Her/OaCCuvgrKdLc3qPOcYU1r4uw6586-72-44H06:47: [id number] [place] [address] PATIENT NAME: JESSICA OLSEN ADMIT DATE: 11/15/21ACCOUNT NO: [id number] ROOM NO: .5535 AGE: 45 REPORT TYPE: eELECTROCARDIOGRAM REPORT SEX: F ADMITTING PHYSICIAN:Zach Wilson MD ATTENDING PHYSICIAN:Zach Wilson MD Order:[id number] Reason : S/P ABLATION Test Date/Time Stamp:SunNov 15 2021 10:47:57Blood Pressure : / mmHGVent. Rate : 072 BPM Atrial Rate : 072 BPM P-R Int : 180 ms QRS Dur : 132 ms QT Int : 480 ms P-R-T Axes : 005 -73 -30 degrees QTc Int : 525 ms Normal sinus rhythmIncomplete right bundle branch blockLeft anterior fascicular blockInverted T waves have replaced nonspecific T wave abnormality in lateral leadsAbnormal ECGConfirmed by ANNE MARIE WILKS MD ([id number]) on 11/15/2021 2:00:37 PM Referred By: Zach Vanessa Confirmed by:ANNE MARIE WILKS MD at 1400 PATIENT NAME: JESSICA OLSEN .[id number] AVAvailable for patient qyroYAAWGSUKUEZIGP4991-25-84T12:01:04 [facility] 2021-11-11 13:25:00 [id number] z0h8rEDcY7R5cGDpTB2gGWMwADWmx MYZzAkvjxGb5UhCD1ZKJY2U+DKJ0pTpP5809-09-10X32:25: [id number] [place] [address] PATIENT NAME: JESSICA OLSEN ADMIT DATE: ACCOUNT NO: [id number] ROOM NO: AGE: 45 REPORT TYPE: eELECTROCARDIOGRAM REPORT SEX: F ADMITTING PHYSICIAN: ATTENDING PHYSICIAN:Zach Wilson MD Order:[id number] Reason : PREOP Test Date/Time Stamp:SunNov 11 2021 13:25:27Blood Pressure : / mmHGVent. Rate : 106 BPM Atrial Rate : 326 BPM P-R Int : 000 ms QRS Dur : 126 ms QT Int : 372 ms P-R-T Axes : 000 -65 -20 degrees QTc Int : 494 ms Atrial flutter with variable AV blockRight bundle branch blockLeft anterior fascicular block Bifascicular block Anterior infarct , age undeterminedAbnormal ECGPRE_OPConfirmed by STEVEN LEAHY, ANNE MARIE ([id number]) on 11/11/2021 1:52:30 PM Referred By: Zach Vanessa Confirmed by:ANNE MARIE WILKS MD at 1352 PATIENT NAME: JESSICA OLSEN .[id number] AVAvailable for patient ttzvXKPVECJTXJEZCF0578-18-14J30:52:52 [facility]
[2023-12-17] MEDS ORDERED: NA CHLORIDE 0.9% 500 ML ONE (12:14)
[2023-12-17] MEDS ORDERED: MAGNESIUM SULFATE 1 gm IVPB 1 GM/100 ML BAG IV ONE (12:15)
[2023-12-17 12:45] LABS: Anion Gap 9.5 mEq/L (5.0-15.0); Potassium 3.5 mEq/L (3.5-5.1); Troponin High Sensitivity 6.7 pg/mL (<58.9)
--- NOTE | 2023-12-17 12:50 | RAD REPORT ---
EXAM DESCRIPTION: Angelica Single View12/17/2023 12:43 pm CLINICAL HISTORY: Palpitation COMPARISON: 2022 FINDINGS: The lungs appear clear of acute infiltrate. The heart is moderately enlarged IMPRESSION: No acute abnormalities displayed
[2023-12-17 12:56] LABS: Absolute Eosinophils 0.1 K/uL (0-0.5); Absolute Lymphocytes (CBC) 1.7 K/uL (0.7-4.9); Absolute Monocytes 0.4 K/uL (0.1-1.3); Absolute Neutrophil 3.5 K/uL (1.8-8.0); Basophils % 0.6 % (0-1.3); Eosinophils % 1.6 % (0-4.4); Hematocrit 38.6 % (36.0-45.0); Hemoglobin 13.2 g/dL (12.0-15.0); Lymphocytes % 29.2 % (15.3-44.8); MCH 30.9 pg (27.0-35.0); MCHC 34.2 g/dL (32.0-36.0); MCV 90.5 fL (80-100); MPV 10.3 fL (7.6-11.3); Monocytes % 7.5 % (3.3-12.3); Neutrophils % 61.1 % (41.7-73.7); Platelets 209 thou/uL (152-406); RBC Red Blood Cell Count 4.27 M/uL (3.86-4.86)
[2023-12-17 13:04] LABS: PT Prothrombin Time 23.2 SECONDS (9.4-12.5); Protime INR 2.16
--- NOTE | 2023-12-17 13:59 | ER ---
Nurse's Notes [facility] Name: Aria Pitts Age: 47 yrs Sex: Female : 1975 Arrival Date: 12/17/2023 Time: 11:43 Bed 2 Private MD: Diagnosis: Paroxysmal atrial fibrillation Presentation: 12/16 12:04 Chief complaint: Patient states: she has been intermittently in A-Fib the last few days ap3 and took an extra dose of her home medication, metoprolol this morning to see if it would help. patient denies any pain at this time. Coronavirus screen: At this time, the client does not indicate any symptoms associated with coronavirus-19. Ebola Screen: No symptoms or risks identified at this time. Initial Sepsis Screen: Does the patient meet any 2 criteria? No. Patient's initial sepsis screen is negative. Does the patient have a suspected source of infection? No. Patient's initial sepsis screen is negative. Risk Assessment: Do you want to hurt yourself or someone else? Patient reports no desire to harm self or others. Onset of symptoms is unknown. 12:04 Method Of Arrival: Wheelchair ap3 12:04 Acuity: FREYA 2 ap3 Triage Assessment: 12:07 General: Appears in no apparent distress. Behavior is calm, cooperative, appropriate ap3 for age. Pain: Denies pain. Neuro: Level of Consciousness is awake, alert, obeys commands, Oriented to person, place, time, situation, Appropriate for age. Cardiovascular: Patient's skin is warm and dry. Rhythm is irregular. Respiratory: Airway is patent Respiratory effort is even, unlabored, Respiratory pattern is regular, symmetrical. Historical: - Allergies: 12:05 No Known Allergies; ap3 - Home Meds: 12:05 metoprolol [Active]; Xarelto oral [Active]; ap3 - PMHx: 12:05 Atrial fibrillation; ap3 - PSHx: 12:05 A fib ablation; ap3 - Immunization history:: Client reports having NOT received the Covid vaccine. - Infectious Disease History:: Denies. - Family history:: not pertinent. - Social history:: Smoking status: Patient denies any tobacco usage or history of. - Hospitalizations: : No recent hospitalization is reported. Screenin:08 Abuse screen: Denies threats or abuse. Nutritional screening: No deficits noted. ap3 Tuberculosis screening: No symptoms or risk factors identified. 12:19 [facility] ED Fall Risk Assessment (Adult) History of falling in the last 3 months, ld1 including since admission No falls in past 3 months (0 pts) Confusion or Disorientation No (0 pts) Intoxicated or Sedated No (0 pts) Impaired Gait No (0 pts) Mobility Assist Device Used No (0 pt) Altered Elimination No (0 pt) Score/Fall Risk Level 0 - 2 = Low Risk Oriented to surroundings, Maintained a safe environment, Educated pt \T\ family on fall prevention, incl call for assistance when getting out of bed, Assessed \T\ reinforced patient's understanding of fall precautions, Provided non-skid footwear, Hourly rounding (assess needs \T\ fall precautionary measures) done, Used ambulatory aids as needed (educated on \T\ assisted with), Used gait belt as appropriate. Assessment: 12:19 General: Appears in no apparent distress. comfortable, Behavior is calm, cooperative, ld1 appropriate for age. Pain: Denies pain. Neuro: Level of Consciousness is awake, alert, obeys commands, Oriented to person, place, time, situation, Appropriate for age. Cardiovascular: Capillary refill < 3 seconds Patient's skin is warm and dry. Rhythm is sinus rhythm. Respiratory: Airway is patent Respiratory effort is even, unlabored. GI: Abdomen is round non-distended. : No signs and/or symptoms were reported regarding the genitourinary system. EENT: No signs and/or symptoms were reported regarding the EENT system. Derm: No signs and/or symptoms reported regarding the dermatologic system. Musculoskeletal: No signs and/or symptoms reported regarding the musculoskeletal system. 13:50 Reassessment: Patient appears in no apparent distress at this time. No changes from ld1 previously documented assessment. Patient and/or family updated on plan of care and expected duration. Pain level reassessed. Vital Signs: 12:04 BP 151 / 97; Pulse 87; Resp 18; Temp 97.9; Pulse Ox 97% on R/A; Weight 63.5 kg; Height ap3 5 ft. 0 in. ; 12:19 BP 144 / 96; Pulse 74; Resp 15; Pulse Ox 96% on R/A; ld1 13:35 Pulse 91; Resp 18; Pulse Ox 99% on R/A; ld1 14:10 BP 132 / 76; Pulse 71; Resp 18; Pulse Ox 100% on R/A; ld1 12:04 Body Mass Index 27.34 (63.50 kg, 152.4 cm) ap3 13:35 post ambulating to bathroom ld1 ED Course: 11:47 Patient arrived in ED. mr 11:47 Demian Gray MD is Attending Physician. rn 12:05 Triage completed. ap3 12:07 EKG done, by ED staff, reviewed by Demian Gray MD. ap3 12:07 Patient has correct armband on for positive identification. Placed in gown. Bed in low ap3 position. Call light in reach. Side rails up X 1. Adult w/ patient. Provided Education on: call light education and fall risk educaiton. Client placed on continuous cardiac and pulse oximetry monitoring. NIBP monitoring applied. hall monitor on. Pulse ox on. NIBP on. 12:08 Arm band placed on right wrist. ap3 12:12 Mary Sim, ROSALINDA is Primary Nurse. ld1 12:14 Initial lab(s) drawn, by me, sent to lab. Inserted saline lock: 20 gauge in right hand, em1 using aseptic technique. Blood collected. 12:14 Basic Metabolic Panel Sent. em1 12:15 CBC with Diff Sent. em1 12:15 NT PRO-BNP Sent. em1 12:15 PT-INR Sent. em1 12:15 Troponin HS Sent. em1 12:19 No provider procedures requiring assistance completed. ld1 12:19 Door closed. Noise minimized. Warm blanket given. ld1 12:43 XRAY Chest (1 view) In Process Unspecified. EDMS 14:14 IV discontinued, intact, bleeding controlled, No redness/swelling at site. ld1 Administered Medications: 12:19 Drug: NS 0.9% IV 500 ml IV at bolus once Route: IV; Rate: bolus; Site: left hand; ld1 12:19 Drug: Magnesium Sulfate IVPB 1 grams IVPB once over 1 hrs Route: IVPB; Infused Over: 1 ld1 hrs; Site: left hand; Medication: 12:08 VIS not applicable for this client. ap3 Outcome: 13:58 Discharge ordered by . rn 14:14 Discharged to home ambulatory, with family, ld1 14:14 Condition: stable 14:14 Discharge instructions given to patient, family, Instructed on discharge instructions, follow up and referral plans. Demonstrated understanding of instructions, follow-up care, 14:16 Patient left the ED. ld1 Signatures: Dispatcher [employer] Tereza Salvador, Josiah Rahman mr Demian Gray MD MD rn Martinez, Eric em1 Abeba Bates RN RN ap3 Mary Sim RN RN ld1
--- NOTE | 2023-12-17 13:59 | EDPHYS ---
Physician Documentation [facility] Name: Aria Pitts Age: 47 yrs Sex: Female : 1975 Arrival Date: 12/17/2023 Time: 11:43 Bed 2 Private MD: ED Physician Demian Gray HPI: 12/16 12:01 This 47 yrs old Female presents to ER via Unassigned with complaints of AFIB, high renal dialysis rn rate. 12:01 The patient presents with a history of irregular heart beat, heart racing. Context: The rn symptoms occur at rest, with light activity. Onset: The symptoms/episode began/occurred yesterday. Modifying factors: The symptoms are aggravated by nothing. The symptoms are alleviated by prescription medication, remaining still, rest. Severity of symptoms: At their worst the symptoms were moderate in the emergency department the symptoms have improved. The patient has experienced similar episodes in the past. Patient reports palpitations and heart racing that began yesterday. Patient has known atrial fibrillation. Takes metoprolol. Did not tolerate sotalol well in the past due to prolonged QT. Denies syncope or chest pain. Does report mild shortness of breath during fast episodes. Took extra 50 mg of metoprolol this morning about an hour and a half ago. Feeling better.. Historical: - Allergies: 12:05 No Known Allergies; ap3 - Home Meds: 12:05 metoprolol [Active]; Xarelto oral [Active]; ap3 - PMHx: 12:05 Atrial fibrillation; ap3 - PSHx: 12:05 A fib ablation; ap3 - Immunization history:: Client reports having NOT received the Covid vaccine. - Infectious Disease History:: Denies. - Family history:: not pertinent. - Social history:: Smoking status: Patient denies any tobacco usage or history of. - Hospitalizations: : No recent hospitalization is reported. ROS: 12:01 Constitutional: Negative for fever, chills, and weight loss, Neck: Negative for injury, rn pain, and swelling, Cardiovascular: Positive for palpitations Respiratory: Positive for shortness of breath Abdomen/GI: Negative for abdominal pain, nausea, vomiting, diarrhea, and constipation, MS/Extremity: Negative for injury and deformity, Skin: Negative for injury, rash, and discoloration, Neuro: Negative for headache, weakness, numbness, tingling, and seizure, Exam: 12:01 Constitutional: This is a well developed, well nourished patient who is awake, alert, rn and in no acute distress. Cardiovascular: Tachycardic, regular Respiratory: No increased work of breathing, no retractions or nasal flaring. Neuro: Awake and alert, GCS 15 12:09 ECG was reviewed by the Attending Physician. rn Vital Signs: 12:04 BP 151 / 97; Pulse 87; Resp 18; Temp 97.9; Pulse Ox 97% on R/A; Weight 63.5 kg; Height ap3 5 ft. 0 in. ; 12:19 BP 144 / 96; Pulse 74; Resp 15; Pulse Ox 96% on R/A; ld1 13:35 Pulse 91; Resp 18; Pulse Ox 99% on R/A; ld1 14:10 BP 132 / 76; Pulse 71; Resp 18; Pulse Ox 100% on R/A; ld1 12:04 Body Mass Index 27.34 (63.50 kg, 152.4 cm) ap3 13:35 post ambulating to bathroom ld1 MDM: 11:47 Patient medically screened. rn 13:57 Differential diagnosis: arrythmia, dehydration. Data reviewed: vital signs, nurses rn notes, lab test result(s), EKG, radiologic studies, plain films, and as a result, I will discharge patient. Consideration of Admission/Observation Patient was admitted/placed on observation. Escalation of care including admission/observation considered. Care significantly affected by the following chronic conditions: Afib. Counseling: I had a detailed discussion with the patient and/or guardian regarding the historical points, exam findings, and any diagnostic results supporting the discharge/admit diagnosis, lab results, radiology results, the need for outpatient follow up, to return to the emergency department if symptoms worsen or persist or if there are any questions or concerns that arise at home. Special discussion: I discussed with the patient/guardian in detail that at this point there is no indication for admission to the hospital. It is understood, however, that if the symptoms persist or worsen the patient needs to return immediately for re-evaluation. Based on the history and exam findings, there is no indication for further emergent testing or inpatient evaluation. I discussed with the patient/guardian the need to see the photo studio assistant for further evaluation of the symptoms. I discussed with the patient/guardian the need to see the primary care provider for further evaluation of the symptoms. ED course: Patient back in sinus rhythm, rate controlled, no evidence of heart damage or blood abnormalities. Feels much better. Denies dyspnea. Will discharge home with instructions to follow-up with cardiology for possible adjustment of her metoprolol. I have personally reviewed all of the results, including but not limited to blood tests and imaging deemed necessary to safely discharge this patient at this time. All results given to and printed out for patient. I personally went over all the results with the patient and answered all questions. Patient will follow-up with PCP and or specialist as discussed. Return precautions given and understood.. 12/16 12: Order name: Basic Metabolic Panel; Complete Time: 12:50 12/16 12: Order name: CBC with Diff; Complete Time: 13:12/16 12: Order name: NT PRO-BNP; Complete Time: 12: 12/16 12: Order name: PT-INR; Complete Time: 13:12/16 12:01 Order name: Troponin HS; Complete Time: 12:12/16 12: Order name: XRAY Chest (1 view); Complete Time: 12:12/16 12:01 Order name: Cardiac monitoring; Complete Time: 12:12/16 12:01 Order name: EKG - Nurse/Tech; Complete Time: 12:12/16 12:01 Order name: IV Saline Lock; Complete Time: 12:12/16 12:01 Order name: Labs collected and sent; Complete Time: 12:12/16 12:01 Order name: O2 Per Protocol; Complete Time: 12:12/16 12:01 Order name: O2 Sat Monitoring; Complete Time: 12:12/16 12:22 Order name: Labs - recollect needed: recollect blue lavender and green top; Complete bd Time: 13: EC:09 Rate is 74 beats/min. Rhythm is regular. Left axis deviation noted. QRS is positive in rn lead I and negative in lead aVF. [place] interval is prolonged. QRS interval is prolonged at 134 msec. QT interval is normal. No Q waves. T waves are Normal. No ST changes noted. Clinical impression: 1st degree heart block. Interpreted by me. Reviewed by me. Administered Medications: 12:19 Drug: NS 0.9% IV 500 ml IV at bolus once Route: IV; Rate: bolus; Site: left hand; ld1 12:19 Drug: Magnesium Sulfate IVPB 1 grams IVPB once over 1 hrs Route: IVPB; Infused Over: 1 ld1 hrs; Site: left hand; Disposition Summary: 12/17/23 13:58 Discharge Ordered Notes: Location: Home rn Problem: chronic rn Symptoms: have improved rn Condition: Stable rn Diagnosis - Paroxysmal atrial fibrillation rn Followup: rn - With: Private Physician - When: 2 - 3 days - Reason: Recheck today's complaints, Re-evaluation by your physician Discharge Instructions: - Discharge Summary Sheet rn - Atrial Fibrillation rn Forms: - Medication Reconciliation Form rn - Antibiotic internist medical doctor md - Prescription Opioid Use rn - Patient Portal Instructions rn - Leadership Thank You Letter rn Signatures: Dispatcher [employer] EDMS Suzanne Cam Roman, MD MD rn Prokisch, Amanda, RN RN ap3 Mary Sim RN RN ld1 Corrections: (The following items were deleted from the chart) 12:01 12:01 BASIC METABOLIC PANEL+C.LAB.BRZ ordered. EDMS EDMS 12: 12:01 CBC+H.LAB.BRZ ordered. EDMS EDMS 12: 12:01 PROBNP+C.LAB.BRZ ordered. EDMS EDMS 12: 12:01 PROTIME (+INR)+COAG.LAB.BRZ ordered. EDMS EDMS 12:01 12:01 Troponin High Sensitivity+C.LAB.BRZ ordered. EDMS EDMS 12:02 12:02 Chest Single View+RAD.RAD.BRZ ordered. EDMS EDMS
[2023-12-17 20:46] VITALS: BP 132/76; TEMP 97.9; O2SAT 100
--- NOTE | 2023-12-18 12:45 | EKG ---
Test Date: 2023-12-17 Test Time: 11:57:16 Early Childhood Special Educator: ALP MEASUREMENT RESULTS: Intervals: Rate: 74 HI: 300 QRSD: 134 QT: 440 QTc: 488 [place]: P: 70 HI: 300 QRS: -72 T: -34 INTERPRETIVE STATEMENTS: Sinus rhythm with 1st degree AV block Right bundle branch block Left anterior fascicular block Bifascicular block Anterolateral infarct, age undetermined Abnormal ECG Compared to ECG 05/03/2023 07:14:37 First degree AV block now present Myocardial infarct finding now present T-wave abnormality no longer present Possible ischemia no longer present Bifascicular block still present Electronically Signed On 12-18-23 12:41:55 CDT by Alfredo Bright
== END 2023-12-17 14:16 | disposition home or self-care (01) ==
LOC: ER 11:43
DX: I48.0 Paroxysmal atrial fibrillation (principal); Z79.01 Long term (current) use of anticoagulants
CPT/HCPCS: 85025; 80048; 36415; 85610; 84484; 83880; 71045; J3475; J7040; 93005